=== PATIENT | female | born 1980 | race Caucasian/White ===

== ENCOUNTER 2016-11-22 14:18 | Emergency (ER) | payer BC ==
[2016-11-22 14:23] VITALS: BP 133/89; BMI 38.9
--- NOTE | 2016-11-22 15:04 | DR.GENAD ---
HPI - PCP Primary Care Physician: LISET - HPI Comment HPI Comment: S/P GASTRIC SLEAVE SURGERY. NO DIARRHEA. NO FEVER OR DYSURIA. - Complaint/Symptoms Chief Complaint Doctors Comments: ABDOMINAL PAIN SINCE LAST NIGHT WITH NAUSEA AND VOMITING. Chief Complaint:: PT C/O SEVERE ABD CRAMPING WITH N/V. PT STATES IT STARTED LAST NIGHT AND HAS PROGRESSIVLY GOTTEN WORSE. - Nurses notes reviewed Nurses Notes Review: Yes - Source History Provided: Patient - Mode of Arrival Mode of Arrival: Ambulatory - Timing Onset of Chief Complaint: 11/21/16 Came on: Suddenly - Duration Duration: Constant Duration: Hours - Severity Severity: Moderate PMH - PMH Past Medical History: Yes Past Medical History: Anxiety, GERD, Hypertension Past Surgical History: Yes Surgical History: Abdominal Surgery, Appendectomy, , Cholecystectomy, Hysterectomy Past Surgical History Comment: GASTRIC SLEAVE (THIS PAST JUNE) - Family History History of Family Medical Conditions: No - Social History Does any household member use tobacco: No Alcohol Use: None Do you use any recreational Drugs:: No Lives With: Family Lives Where: Home - infectious screening In the last 2 months have you had wt loss of >10#?: NO Have you had fever, night sweats or hemotysis?: No Have you traveled outside the country in the last 6 months?: No Isolation: Standard ROS - Review of Systems Constitutional: No Symptoms Reported, Weakness, Fatigue, Loss of Appetite. negative: Chills, Diaphoresis, Fever Eyes: No Symptoms Reported. negative: Eye Pain, Discharge ENTM: No Symptoms Reported. negative: Ear Pain, Nose Discharge, Nose Congestion , Throat Pain Respiratoy: No Symptoms Reported. negative: Productive Cough, Non-Productive Cough, Short of Breath, Wheezing, Hemoptysis Cardiovascular: No Symptoms Reported. negative: Chest Pain, Edema, Palpitations Gastrointestinal/Abdominal: Abdominal Pain, Nausea, Vomiting Genitourinary: negative: Dysuria, Frequency, Hematuria Neurological: Weakness. negative: Headache, Dizziness Musculoskeletal: No Symptoms Reported Integumentary: No Symptoms Reported. negative: Change in Color, Dryness, Rash, Bruises, Juandice Hematologic/Lymphatic: No Symptoms Reported Endocrine: No Symptoms Reported All Other Systems: Reviewed and Negative PE - Vital Signs Vitals: Temperature 98.1 F Pulse Rate 85 Respiratory Rate 20 Blood Pressure [Left Arm] 109/66 Blood Pressure 133/89 O2 Sat by Pulse Oximetry 95 - General Limitations: No Limitations General Appearance: Alert - Head Head Exam: Normal Inspection - Eyes Eye exam: Normal Appearance - ENT ENT Exam: Normal External Ear Exam External Ear Exam: Normal External Inspection TM/Canal Exam: Bilateral Normal Nose Exam: Normal Nose Exam Mouth Exam: Normal Inspection Throat Exam: Normal Inspection - Neck Neck Exam: Trachea Midline. negative: Tenderness, Meningismus, Lymphadenopathy - Chest Chest Inspection: Symmetric Chest Wall Rise - Respiratory Respiratory Exam: Normal Lung Sounds Bilat Respiratory Exam: Bilateral Clear to Auscultation - Cardiovascular Cardiovascular Exam: Regular Rate, Normal Rhythm, Normal Heart Sounds - Abdominal Exam Abdominal Exam: Normal Bowel Sounds, Soft, Tenderness Abdominal Tenderness: Diffuse, Moderate - Extremities Extremities Exam: Normal Inspection - Back Back Exam: Normal Inspection - Neurologic Neurological Exam: Alert, Oriented X3, Normal Gait, Reflexes Normal. negative: CN II-XII Intact, Motor Sensory Deficit - Psychiatric Psychiatric Exam: Normal Affect, Normal Mood - Skin Skin Exam: Normal Color MDM - Additional Information Additional Information Obtained From: Family - Differential Diagnosis Differential Diagnosis: ABDOMINAL PAIN, BOWEL OBSTRUCTION, UTI, Course - Treatment Treatment: SEE ORDERS. - Consultation Consultation Comments: DISCUSS PATIENT WITH REAL ESTATE OPERATIONS MANAGER HEAD FILTER TANK TENDER HELPER FOR DR. JORDAN. PATIENT TO GO TO DR. DELUNA OFFICE IN AM. - Education/Counseling Education/Counseling: Patient, Family, Education Educated On: Diagnosis ROR - Labs Reviewed Laboratory Results Reviewed?: Yes Result Diagrams: 11/22/16 15:10 11/22/16 15:10 Laboratory: WBC 9.4 X10^3/uL (3.6-10.0) 11/22/16 15:10 RBC 4.97 X10^6/uL (3.5-5.4) 11/22/16 15:10 Hgb 15.8 g/dL (12.0-16.0) 11/22/16 15:10 Hct 45.0 % (36.0-47.0) 11/22/16 15:10 MCV 90.5 fL (80.0-100.0) 11/22/16 15:10 MCH 31.8 pg (27.0-34.0) 11/22/16 15:10 MCHC 35.2 g/dL (33.0-35.0) H 11/22/16 15:10 RDW 13.9 % (11.6-16.5) 11/22/16 15:10 Plt Count 261 X10^3/uL (150.0-450.0) 11/22/16 15:10 MPV 8.3 fL (7.4-11.0) 11/22/16 15:10 Neut % 74.7 % (42.0-75.0) 11/22/16 15:10 Lymph % 17.3 % (21.0-51.0) L 11/22/16 15:10 [place] % 5.9 % (0.0-13.0) 11/22/16 15:10 Eos % 0.8 % (0.9-2.9) L 11/22/16 15:10 Baso % 1.3 % (0.2-1.0) H 11/22/16 15:10 Neut # 7.0 x10^3/uL (2.2-4.8) H 11/22/16 15:10 Lymph # 1.6 X10^3/uL (1.3-2.9) 11/22/16 15:10 [place] # 0.6 x10^3/uL (0.3-0.8) 11/22/16 15:10 Eos # 0.1 x10^3/uL (0.0-0.2) 11/22/16 15:10 Baso # 0.1 X10^3/uL (0.0-0.1) 11/22/16 15:10 Absolute Nucleated RBC 0.1 /100WBC 11/22/16 15:10 Sodium 143 mmol/L (136-145) 11/22/16 15:10 Corrected Sodium 144 mmol/L (136-145) 11/22/16 15:10 Potassium 3.5 mmol/L (3.5-5.1) 11/22/16 15:10 Chloride 101 mmol/L (98-107) 11/22/16 15:10 Carbon Dioxide 34.5 mmol/L (21-32) H 11/22/16 15:10 BUN 9 mg/dL (7-18) 11/22/16 15:10 Creatinine 0.76 mg/dL (0.55-1.02) 11/22/16 15:10 Est GFR (MDRD) Af Amer > 60 (>60) 11/22/16 15:10 Est GFR (MDRD) Non-Af > 60 (>60) 11/22/16 15:10 Glucose 121 mg/dL (65-99) H 11/22/16 15:10 Calcium 8.9 mg/dL (8.5-10.1) 11/22/16 15:10 Corrected Calcium TNP 11/22/16 15:10 Total Bilirubin 0.80 mg/dL (0.2-1.0) 11/22/16 15:10 AST 20 Units/L (15-37) 11/22/16 15:10 ALT 26 Units/L (12-78) 11/22/16 15:10 Alkaline Phosphatase 64 Units/L (46-116) 11/22/16 15:10 Total Protein 7.6 g/dL (6.4-8.2) 11/22/16 15:10 Albumin 3.5 g/dL (3.4-5.0) 11/22/16 15:10 Globulin 4.1 g/dL (2.5-4.5) 11/22/16 15:10 Albumin/Globulin Ratio 0.9 Ratio (1.1-2.1) L 11/22/16 15:10 Amylase 43 Units/L (25-115) 11/22/16 15:10 Lipase 101 Units/L (73-393) 11/22/16 15:10 Specimen Type Clean catch urine 11/22/16 15:36 Urine Color Dark yellow (YELLOW) 11/22/16 15:36 Urine Appearance Clear (CLEAR) 11/22/16 15:36 Urine pH 6.0 (5.0 - 8.0) 11/22/16 15:36 Ur Specific [place] 1.025 (1.000-1.030) 11/22/16 15:36 Urine Protein 2+ (NEGATIVE) 11/22/16 15:36 Urine Glucose (UA) Negative (NEGATIVE) 11/22/16 15:36 Urine Ketones 3+ (NEGATIVE) 11/22/16 15:36 Urine Occult Blood Negative (NEGATIVE) 11/22/16 15:36 Urine Nitrite Negative (NEGATIVE) 11/22/16 15:36 Urine Bilirubin Negative (NEGATIVE) 11/22/16 15:36 Urine Urobilinogen 1+ (NORMAL) 11/22/16 15:36 Ur Leukocyte Esterase 1+ (NEGATIVE) 11/22/16 15:36 Urine RBC None seen /HPF (NEGATIVE) 11/22/16 15:36 Urine WBC 1-3 /HPF (NEGATIVE) 11/22/16 15:36 Ur Squamous Epith Cells Few /HPF (NEGATIVE) 11/22/16 15:36 Amorphous Sediment 1+ /HPF (NEGATIVE) 11/22/16 15:36 Urine Bacteria 1+ /HPF (NEGATIVE) 11/22/16 15:36 Urine Mucus Moderate /HPF (NEGATIVE) 11/22/16 15:36 Ur Culture Indicated? No/not indicated 11/22/16 15:36 - XRAY XRAY Interpreted by: Radiologist XRAY Findings: REPORT DISCUSS WITH PATIENT AND FAMILY. - Diagnosis Discharge Problem: Ovarian cyst Abdominal pain Qualifiers: Abdominal location: generalized Qualified Code(s): R10.84 - Generalized abdominal pain - Discharge Plan Disposition: HOME, SELF-CARE Condition: Stable Prescriptions: Hydrocodone-Acet 5 mg/325 mg [[place] 5/325 mg Tab] 1 tab PO Q6H PRN #12 tab PRN Reason: Pain Ondansetron HCl [Zofran Tab 4 mg] 4 mg PO Q8H PRN #12 tab PRN Reason: Nausea/Vomiting - Follow ups/Referrals Follow ups/Referrals: Rigo Wise [Primary Care Provider] - 1 day - Instructions Instructions: Abdominal Pain, Adult, [id number], Ovarian Cyst, [id number] Additional Instructions: SEE DR. JORDAN, YOUR REAL ESTATE OPERATIONS MANAGER IN AM.RETURN TO ED IF WORSE.
[2016-11-22 15:24] LABS: BASOPHILS # (AUTO) 0.1 X10^3/uL (0.0-0.1); BASOPHILS % (AUTO) 1.3 % (0.2-1.0); EOSINOPHILS # (AUTO) 0.1 x10^3/uL (0.0-0.2); EOSINOPHILS % (AUTO) 0.8 % (0.9-2.9); HEMOGLOBIN 15.8 g/dL (12.0-16.0); LYMPHOCYTES # (AUTO) 1.6 X10^3/uL (1.3-2.9); LYMPHOCYTES % (AUTO) 17.3 % (21.0-51.0); MEAN CORPUSCULAR HEMOGLOBIN 31.8 pg (27.0-34.0); MEAN CORPUSCULAR HGB CONC 35.2 g/dL (33.0-35.0); MEAN CORPUSCULAR VOLUME 90.5 fL (80.0-100.0); MEAN PLATELET VOLUME 8.3 fL (7.4-11.0); MONOCYTES # (AUTO) 0.6 x10^3/uL (0.3-0.8); MONOCYTES % (AUTO) 5.9 % (0.0-13.0); NEUTROPHILS % (AUTO) 74.7 % (42.0-75.0); PLATELET COUNT 261 X10^3/uL (150.0-450.0); RED BLOOD COUNT 4.97 X10^6/uL (3.5-5.4); RED CELL DISTRIBUTION WIDTH 13.9 % (11.6-16.5); WHITE BLOOD COUNT 9.4 X10^3/uL (3.6-10.0)
[2016-11-22] MEDS ORDERED: MORPHINE SULFATE INJ 4 MG IM ONE (15:28)
[2016-11-22] MEDS ORDERED: ZOFRAN INJ 4 MG VIAL IM ONE (15:28)
[2016-11-22 15:37] LABS: ALANINE AMINOTRANSFERASE 26 Units/L (12-78); ALBUMIN 3.5 g/dL (3.4-5.0); ALKALINE PHOSPHATASE 64 Units/L (46-116); AMYLASE 43 Units/L (25-115); ASPARTATE AMINO TRANSFERASE 20 Units/L (15-37); BLOOD UREA NITROGEN 9 mg/dL (7-18); CALCIUM 8.9 mg/dL (8.5-10.1); CARBON DIOXIDE 34.5 mmol/L (21-32); CHLORIDE 101 mmol/L (98-107); COR NA(FOR HYPERGLY) 144 mmol/L (136-145); CREATININE 0.76 mg/dL (0.55-1.02); GLUCOSE 121 mg/dL (65-99); LIPASE 101 Units/L (73-393); SODIUM 143 mmol/L (136-145); TOTAL PROTEIN 7.6 g/dL (6.4-8.2); eGFR BLACK RACES > 60 (>60); eGFR NON BLACK RACES > 60 (>60)
[2016-11-22] MEDS ORDERED: MORPHINE SULFATE INJ 4 MG ONE (15:46)
[2016-11-22] MEDS ORDERED: ZOFRAN INJ 4 MG VIAL ONE (15:46)
[2016-11-22 15:53] LABS: BILIRUBIN,URINE NEGATIVE (NEGATIVE); BLOOD/HEMOGLOBIN,URINE NEGATIVE (NEGATIVE); GLUCOSE, URINE NEGATIVE (NEGATIVE); KETONES,URINE 3+ (NEGATIVE); LEUKOCYTE ESTERASE ,URINE 1+ (NEGATIVE); NITRITES,URINE NEGATIVE (NEGATIVE); PROTEIN,URINE 2+ (NEGATIVE); UROBILINOGEN,URINE 1+ (NORMAL)
[2016-11-22 16:03] LABS: AMORPHOUS SEDIMENT,UR 1+ /HPF (NEGATIVE); APPEARANCE,URINE CLEAR (CLEAR); BACTERIA,URINE 1+ /HPF (NEGATIVE); COLOR,URINE DARK YELLOW (YELLOW); MUCUS,URINE MODERATE /HPF (NEGATIVE); RBC,URINE NONE SEEN /HPF (NEGATIVE); SQUAMOUS EPITHELIAL CELL,UR FEW /HPF (NEGATIVE)
[2016-11-22] MEDS ORDERED: NS 100 ML IV 100 ML IV ONE (18:37)
--- NOTE | 2016-11-22 20:03 | CT ---
CT abdomen and pelvis with contrast Indication: Severe abdominal pain Comparison: None Technique: CT images of the abdomen and pelvis were obtained after IV and oral contrast administrati on. Automatic exposure control was utilized. Findings: The lung bases are essentially clear. No aggressive osseous lesion is seen. The gallbladde r is surgically absent. There is some geographic hypoattenuation seen centrally within the liver and adjacent to the fissure for ligamentum teres. There is trace perihepatic ascites anteriorly and sup eriorly. The liver is normal in size and configuration. Previous sleeve gastrectomy is noted, but the stomach is otherwise grossly unremarkable. The spleen, duodenum, pancreas, and adrenals are unremarkable. Hyper attenuating material within the collecting systems is more suggestive for excreted contrast, as opposed renal stones. There is no hydronephros is. There is moderate distention of a loop of jejunum within the right upper quadrant with associated mu cosal hyperemia, mesenteric stranding, and trace mesenteric fluid. The immediately distal jejunum de monstrates some hyperemia, but is not significantly distended. The appendix is surgically absent. Th e colon is otherwise unremarkable. The uterus is absent. There is a low-density 3.8 cm right adnexal lesion, suggestive for an ovarian cyst. Urinary bladder and rectum are unremarkable. Small amount o f pelvic free fluid is likely physiologic. No adenopathy identified. Impression: 1. Distended loop of distal jejunum within the right upper quadrant demonstrates mucosal hyperemia a nd adjacent mesenteric stranding. Differential considerations include enteritis (inflammatory versus infectious) or partial small bowel obstruction. 2. Geographic area of hypoattenuation within the central portion of the liver could represent focal fatty infiltration or possibly intrahepatic biliary dilation. This could be further evaluated with u ltrasound, if indicated. 3. There is trace perihepatic ascites, nonspecific. Correlate with liver function tests. 4. 3.8 cm right ovarian cyst and other findings as above. Reported By:
== END 2016-11-22 21:20 | disposition home or self-care (01) ==
LOC: ER 14:28
DX: N83.201 Unspecified ovarian cyst, right side (principal); R10.84 Generalized abdominal pain
CPT/HCPCS: 36415; 74177; 80053; 81001; 82150; 83690; 85025; 96365; 96374; 96375; 99283; A4222; J2270; J2405

== ENCOUNTER 2020-06-15 09:34 | Inpatient (IN) ==
[2020-06-15 09:42] VITALS: BMI 41.5
--- NOTE | 2020-06-15 10:05 | DR.GENAD ---
HPI Time Seen Time Seen by Provider: 06/15/20 09:56 PCP Primary Care Physician: LISET Complaint/Symptoms Chief Complaint Doctors Comments: as per CC [plus marked LOVE no orthopnea no pedal edema no hemoptysis sx increase with activity decrease with rest Chief Complaint:: PT. TESTED POSITIVE FOR COVID 19 YESTERDAY AND WAS STARTED ON A ZPAK. PT. C/O FATIGUE, FEVER, HEADACHE, BODY ACHES, COUGH, SHORTNESS OF BREATH. COVID-19 Coronavirus risk:travel/contact w/high risk person: Yes Has patient experienced Coronavirus symptoms: Yes Coronavirus symptoms experienced: Fever, Coughing and Shortness of Breath Source History Provided: Patient Mode of Arrival Mode of Arrival: Ambulatory Timing Onset of Chief Complaint: 06/12/20 PMH PMH Past Medical History: Yes Past Medical History: Anxiety, GERD and Hypertension Past Surgical History: Yes Surgical History: Abdominal Surgery, Appendectomy, , Cholecystectomy and Hysterectomy Family History History of Family Medical Conditions: Yes Family Medical History: Diabetes Mellitus, Cancer and Hypertension Social History Does patient currently use any type of tobacco product: No Have you used tobacco products in the last 12 months: No Type of Tobacco Use: None Does any household member use tobacco: No Alcohol Use: Occasionally Do you use any recreational Drugs:: No Lives With: Spouse Lives Where: Home Travel Risk Coronavirus risk:travel/contact w/high risk person: Yes Has patient experienced Coronavirus symptoms: Yes Coronavirus symptoms experienced: Fever, Coughing and Shortness of Breath Infectious screening In the last 2 months have you had wt loss of >10#?: NO Have you had fever, night sweats or hemotysis?: No Have you traveled outside the country in the last 6 months?: No Isolation: Droplet ROS Review of Systems Constitutional: Chills, Diaphoresis, Fever, Malaise, Weakness, Fatigue and Loss of Appetite Eyes: No Symptoms Reported ENTM: No Symptoms Reported Respiratoy: See HPI Cardiovascular: No Symptoms Reported Gastrointestinal/Abdominal: No Symptoms Reported Genitourinary: No Symptoms Reported Neurological: No Symptoms Reported Musculoskeletal: Muscle Pain Integumentary: No Symptoms Reported Hematologic/Lymphatic: No Symptoms Reported Endocrine: No Symptoms Reported Psychiatric: No Symptoms Reported All Other Systems: Reviewed and Negative PE Vital Signs Vitals: Temperature 99.0 F Pulse Rate 85 Respiratory Rate 23 Blood Pressure [Left Arm] 121/84 Blood Pressure 136/83 O2 Sat by Pulse Oximetry 96 General Limitations: No Limitations General Appearance: Alert, In No Apparent Distress and Other (is obviosuly tired and exhausted ) Head Head Exam: Normal Inspection Eyes Eye exam: Normal Appearance, PERRL and EOMI; negative Scleral Icterus and Conjunctival Injection ENT ENT Exam: Normal Exam, Normal Oropharynx, Normal External Ear Exam and Mucous Membranes Moist; negative Mucous Membranes Dry External Ear Exam: Normal External Inspection; negative Mastoid Tenderness Nose Exam: Normal Nose Exam; negative Sinus Tenderness Mouth Exam: Normal Inspection; negative Drooling, Trismus, Lip Swelling, Tongue Elevation and Tongue Swelling Throat Exam: Normal Inspection; negative Tonsillar Erythema, Tonsillomegaly, Tonsillar Exudate, R Peritonsillar Mass and L Peritonsillar Mass Neck Neck Exam: Normal Inspection, Full ROM and Trachea Midline Chest Chest Inspection: Normal Inspection and Symmetric Chest Wall Rise; negative Tenderness Respiratory Respiratory Exam: Normal Lung Sounds Bilat; negative Accessory Muscle Use and Chest Wall Tenderness Respiratory Exam: Bilateral: Clear to Auscultation Cardiovascular Cardiovascular Exam: Regular Rate, Normal Rhythm and Normal Heart Sounds Abdominal Exam Abdominal Exam: Normal Inspection and Normal Bowel Sounds; negative Distention and Tenderness Extremities Extremities Exam: Normal Inspection and Full ROM; negative Tenderness Back Back Exam: Normal Inspection and Full ROM; negative Tenderness Neurologic Neurological Exam: Alert, Oriented X3 and Normal Gait Psychiatric Psychiatric Exam: Normal Affect and Normal Mood Skin Skin Exam: Warm, Dry and Intact MDM Differential Diagnosis Differential Diagnosis: PNM virral, PNM bacterial , COVID, CHF, VA, Arrhytmia, Pneumothorax COURSE Reevaluation 1st: Unchanged (1029 xr suggests PNA discussed with patient see orders ) ROR Labs Reviewed Laboratory Results Reviewed?: Yes Result Diagrams: 06/15/20 09:58 06/15/20 09:58 Laboratory: WBC 5.1 X10^3/uL (3.6-10.0) 06/15/20 09:58 RBC 3.89 X10^6/uL (3.5-5.4) 06/15/20 09:58 Hgb 12.4 g/dL (12.0-16.0) 06/15/20 09:58 Hct 36.3 % (36.0-47.0) 06/15/20 09:58 MCV 93.3 fL (80.0-100.0) 06/15/20 09:58 MCH 32.0 pg (27.0-34.0) 06/15/20 09:58 MCHC 34.3 g/dL (33.0-35.0) 06/15/20 09:58 RDW 13.8 % (11.6-16.5) 06/15/20 09:58 Plt Count 216 X10^3/uL (150.0-450.0) 06/15/20 09:58 MPV 8.4 fL (7.4-11.0) 06/15/20 09:58 Neut % (Auto) 56.0 % (42.0-75.0) 06/15/20 09:58 Lymph % (Auto) 32.2 % (21.0-51.0) 06/15/20 09:58 [place] % (Auto) 7.2 % (0.0-13.0) 06/15/20 09:58 Eos % (Auto) 4.2 % (0.9-2.9) H 06/15/20 09:58 Baso % (Auto) 0.4 % (0.2-1.0) 06/15/20 09:58 Neut # (Auto) 2.9 x10^3/uL (2.2-4.8) 06/15/20 09:58 Lymph # (Auto) 1.6 X10^3/uL (1.3-2.9) 06/15/20 09:58 [place] # (Auto) 0.4 x10^3/uL (0.3-0.8) 06/15/20 09:58 Eos # (Auto) 0.2 x10^3/uL (0.0-0.2) 06/15/20 09:58 Baso # (Auto) 0.0 X10^3/uL (0.0-0.1) 06/15/20 09:58 Absolute Nucleated RBC 0.1 /100WBC 06/15/20 09:58 PT 12.7 SECONDS (11.8-14.3) 06/15/20 09:58 INR Target Range - 06/15/20 09:58 INR 0.98 (0.8-1.3) 06/15/20 09:58 APTT 29.8 SECONDS (22.9-36.5) 06/15/20 09:58 PTT Comment - 06/15/20 09:58 Sample Site Rb 06/15/20 10:42 ABG pH 7.480 (7.35-7.45) H 06/15/20 10:42 ABG pCO2 42.0 mmHg (35.0-45.0) 06/15/20 10:42 ABG pO2 63.0 mmHg (80.0-100.0) L 06/15/20 10:42 ABG HCO3 31.3 mmol/L (22-26) H* 06/15/20 10:42 ABG O2 Saturation 93.0 % (90-100) 06/15/20 10:42 ABG Base Excess 7.1 mmol/L (-2.0-2.0) H 06/15/20 10:42 [place]iel Test Na 06/15/20 10:42 A-a Gradient 34.0 mmHg 06/15/20 10:42 FiO2 21.0 06/15/20 10:42 Blood Gas Comments Dk well gmb 06/15/20 10:42 Sodium 141 mmol/L (136-145) 06/15/20 09:58 Corrected Sodium TNP 06/15/20 09:58 Potassium 3.1 mmol/L (3.5-5.1) L 06/15/20 09:58 Chloride 105 mmol/L (98-107) 06/15/20 09:58 Carbon Dioxide 29.3 mmol/L (21-32) 06/15/20 09:58 BUN 6 mg/dL (7-18) L 06/15/20 09:58 Creatinine 0.65 mg/dL (0.55-1.02) 06/15/20 09:58 Est GFR (MDRD) Af Amer > 60 (>60) 06/15/20 09:58 Est GFR (MDRD) Non-Af > 60 (>60) 06/15/20 09:58 Glucose 97 mg/dL (65-99) 06/15/20 09:58 Calcium 8.1 mg/dL (8.5-10.1) L 06/15/20 09:58 Corrected Calcium 9.1 mg/dL (8.5-10.1) 06/15/20 09:58 Ferritin 119 ng/mL (8-252) 06/15/20 09:58 Total Bilirubin 0.20 mg/dL (0.2-1.0) 06/15/20 09:58 AST 36 Units/L (15-37) 06/15/20 09:58 ALT 36 Units/L (12-78) 06/15/20 09:58 Alkaline Phosphatase 44 Units/L (46-116) L 06/15/20 09:58 Creatine Kinase 33 Units/L (26-192) 06/15/20 09:58 CK-MB (CK-2) < 1.0 ng/mL (0-4.0) 06/15/20 09:58 CK/CKMB % Calc 3.0 % (<4) 06/15/20 09:58 Troponin I < 0.02 ng/mL (0-1.5) 06/15/20 09:58 C-Reactive Protein 24.60 mg/L (0-3.0) H 06/15/20 09:58 B-Natriuretic Peptide 83.9 pg/mL (0-79) H 06/15/20 09:58 Total Protein 6.1 g/dL (6.4-8.2) L 06/15/20 09:58 Albumin 2.7 g/dL (3.4-5.0) L 06/15/20 09:58 Globulin 3.4 g/dL (2.5-4.5) 06/15/20 09:58 Albumin/Globulin Ratio 0.8 Ratio (1.1-2.1) L 06/15/20 09:58 SARS CoV-2 RNA Rapid [place] Positive (NEGATIVE) A 06/15/20 11:06 XRAY XRAY Interpreted by: Radiologist X-ray Results: suggest PNM EKG Rate: 85 Rhythm: NSR Block: None Hypertrophy: None ST: Normal Opioid Opioid Risk Tool Age (Diego box if 16-45): Yes History of Preadolescent Sexual Abuse: No Total: 1 Total Score Risk Category: Low Risk Copyright: Tariq NUNEZ predicting aberrant behaviors Diagnosis Discharge Problem: Pneumonia, Hypoxia, COVID-19
--- NOTE | 2020-06-15 10:17 | RAD ---
HISTORY:Shortness of breath, COVID-19 positiveStudy: Single view chestComparison:NoneFindings:Single portable view submitted. Lung volumes are reduced. There are hazy perihilar interstitial infiltrates, cannot exclude developing pneumonia or edema.Cardiac and mediastinal contours are within normal limits .The soft tissues are intact .IMPRESSION:Nonspecific perihilar interstitial infiltrates, cannot exclude developing pneumonia or edema.Electronically signed by: TONIE ORTIZ (Jun 15, 2020 10:15:36)
[2020-06-15 10:21] LABS: BASOPHILS % (AUTO) 0.4 % (0.2-1.0); EOSINOPHILS # (AUTO) 0.2 x10^3/uL (0.0-0.2); EOSINOPHILS % (AUTO) 4.2 % (0.9-2.9); HEMATOCRIT 36.3 % (36.0-47.0); HEMOGLOBIN 12.4 g/dL (12.0-16.0); LYMPHOCYTES # (AUTO) 1.6 X10^3/uL (1.3-2.9); LYMPHOCYTES % (AUTO) 32.2 % (21.0-51.0); MEAN CORPUSCULAR HGB CONC 34.3 g/dL (33.0-35.0); MEAN CORPUSCULAR VOLUME 93.3 fL (80.0-100.0); MEAN PLATELET VOLUME 8.4 fL (7.4-11.0); MONOCYTES # (AUTO) 0.4 x10^3/uL (0.3-0.8); MONOCYTES % (AUTO) 7.2 % (0.0-13.0); NEUTROPHILS # (AUTO) 2.9 x10^3/uL (2.2-4.8); PLATELET COUNT 216 X10^3/uL (150.0-450.0); RED BLOOD COUNT 3.89 X10^6/uL (3.5-5.4); RED CELL DISTRIBUTION WIDTH 13.8 % (11.6-16.5); WHITE BLOOD COUNT 5.1 X10^3/uL (3.6-10.0)
[2020-06-15] MEDS ORDERED: VENTOLIN or PROAIR HFA IN ONE (10:30)
[2020-06-15] MEDS ORDERED: SOLU-Medrol 125 MG VIAL IVP ONE (10:30)
[2020-06-15] MEDS ORDERED: ROCEPHIN 1 GRAM IV PREMIX 1 G/50 ML IV.SOLN. IV ONE ×2 (10:31→10:43)
[2020-06-15] MEDS ORDERED: ZITHROMAX INJ 500 MG VIAL 500 MG in NS 250 ML IV 250 ML IV SCH (10:32)
[2020-06-15 10:42] LABS: ALANINE AMINOTRANSFERASE 36 Units/L (12-78); ALBUMIN 2.7 g/dL (3.4-5.0); ALKALINE PHOSPHATASE 44 Units/L (46-116); ASPARTATE AMINO TRANSFERASE 36 Units/L (15-37); BLOOD UREA NITROGEN 6 mg/dL (7-18); CALCIUM 8.1 mg/dL (8.5-10.1); CARBON DIOXIDE 29.3 mmol/L (21-32); CHLORIDE 105 mmol/L (98-107); COR CA(FOR HYPOALB) 9.1 mg/dL (8.5-10.1); CREATINE KINASE 33 Units/L (26-192); CREATINE KINASE MB < 1.0 ng/mL (0-4.0); CREATININE 0.65 mg/dL (0.55-1.02); SODIUM 141 mmol/L (136-145); TOTAL PROTEIN 6.1 g/dL (6.4-8.2); TROPONIN I < 0.02 ng/mL (0-1.5); eGFR NON BLACK RACES > 60 (>60)
[2020-06-15] MEDS ORDERED: ZITHROMAX INJ 500 MG VIAL IV ONE (10:43)
[2020-06-15] MEDS ORDERED: SOLU-Medrol 125 MG VIAL ONE (10:43)
[2020-06-15] MEDS ORDERED: NS 250 ML IV 250 ML IV ONE ×2 (10:43→14:13)
[2020-06-15 10:47] LABS: ABG BASE EXCESS 7.1 mmol/L (-2.0-2.0)
[2020-06-15 10:48] LABS: ABG HCO3 31.3 mmol/L (22-26)
[2020-06-15] MEDS ORDERED: NS 100 ML IV 100 ML IV ONE ×2 (10:50→11:10)
[2020-06-15] MEDS ORDERED: ZOFRAN TAB 4 MG PO SCH (13:37)
[2020-06-15] MEDS ORDERED: VENTOLIN or PROAIR HFA IN PRN (13:37)
[2020-06-15] MEDS ORDERED: REMDESIVIR 200 MG in NS 250 ML IV 250 ML IV NR (13:37)
[2020-06-15] MEDS ORDERED: K-RIDER 10 MEQ/NS 100 ML 10 MEQ/100 ML BAG IV PRN (13:52)
[2020-06-15] MEDS ORDERED: POTASSIUM CHLORIDE LIQ 20 MEQ UDC PO PRN (13:52)
[2020-06-15] MEDS ORDERED: MICRO K EXTEN CAP 10 MEQ PO PRN (13:52)
[2020-06-15] MEDS ORDERED: POTASSIUM CHL 40 MEQ/NS 0.45% 500 ML IV PRN (13:52)
[2020-06-15] MEDS ORDERED: KLOR-CON PO PRN (13:52)
[2020-06-15] MEDS ORDERED: K-DUR TAB 20 MEQ PO PRN (13:52)
[2020-06-15] MEDS ORDERED: POTASSIUM CHL 60 MEQ/NS 0.45% 500 ML IV PRN (13:52)
[2020-06-15] MEDS: ZITHROMAX INJ 500 MG VIAL 500 MG in NS 250 ML IV 250 ML IV SCH (13:58)
[2020-06-15] MEDS: SOLU-Medrol 125 MG VIAL IVP SCH ×2 (13:59→21:00)
[2020-06-15] MEDS ORDERED: ZOFRAN TAB 4 MG PO PRN (14:00)
[2020-06-15] MEDS: REQUIP PO SCH ×2 (14:19→21:00)
[2020-06-15] MEDS: MAGNESIUM SULFATE 1 GRAM/100 mL PREMIX 1 GM/100 ML BAG IV PRN ×2 (17:28→20:30)
[2020-06-15] MEDS ORDERED: LOVENOX INJ 30 MG SYR SC ONE (19:39)
[2020-06-15] MEDS ORDERED: DUONEB 0.5 MG/3 MG (3 mL) NEB ONE (20:22)
[2020-06-15] MEDS: K-DUR TAB 20 MEQ PO SCH (20:30)
[2020-06-15] MEDS: LOVENOX INJ 30 MG SYR SC SCH (21:19)
[2020-06-15] MEDS: DUONEB 0.5 MG/3 MG (3 mL) NEB SCH (21:42)
[2020-06-15] MEDS: PULMICORT NEB TX 0.5 MG NEB SCH (21:42)
[2020-06-16] MEDS ORDERED: NS 100 ML IV 100 ML IV ONE (04:49)
[2020-06-16 05:44] LABS: ABG BASE EXCESS -0.9 mmol/L (-2.0-2.0); ABG HCO3 23.5 mmol/L (22-26)
[2020-06-16 05:45] LABS: ABG ALLEN TEST POS
[2020-06-16] MEDS: REQUIP PO SCH ×3 (06:00→22:00)
[2020-06-16] MEDS: SOLU-Medrol 125 MG VIAL IVP SCH ×3 (06:00→22:00)
[2020-06-16] MEDS: DUONEB 0.5 MG/3 MG (3 mL) NEB SCH ×3 (06:06→21:10)
--- NOTE | 2020-06-16 06:19 | CT ---
HISTORYSOB, COVID+STUDYCTA CHESTCOMPARISONChest radiograph from same dayTECHNIQUECTA chest protocol with axial images from the thoracic inlet to upper abdomen with IV contrast. Sagittal and coronal reformats and MIP images were created. Automated exposure control was utilized.FINDINGSThyroid gland appears benign. The thoracic aorta is normal in caliber and patent. The pulmonary artery is normal in caliber centrally. No filling defect identified to suggest pulmonary embolus. The heart is normal in size. No pericardial effusion. Small hiatal hernia. Postsurgical change the stomach status post gastric sleeve procedure. Hepatic steatosis. Hyperdensity in the left upper pole kidney likely 1.1 cm nephrolithiasis. No acute osseous abnormality.The trachea and mainstem bronchi appear patent. Scattered patchy ground-glass opacities are present in the lungs mainly with peripheral lung predominance. Mild bibasilar subsegmental atelectasis. Small pleural effusions are present. No pneumothorax.IMPRESSIONScattered patchy ground-glass opacities likely due to COVID-19. Small pleural effusions. Negative for pulmonary embolism.Hepatic steatosis. Left nephrolithiasis suspected.Electronically signed by: Jarrell Bravo (Jun 16, 2020 06:17:41)
--- NOTE | 2020-06-16 06:39 | RAD ---
HISTORYSOB, COVID+STUDYCHEST, 1 VIEWCOMPARISONOne day priorTECHNIQUEAP view of the chestFINDINGSCardiac and mediastinal contours appear stable. Stable mild scattered interstitial opacities. Blunted costophrenic sulci. No pneumothorax.IMPRESSIONSimilar appearance to prior with atypical pneumonia and suspected small pleural effusions.Electronically signed by: Jarrell Bravo (Jun 16, 2020 06:37:46)
[2020-06-16 07:27] LABS: BASOPHILS % (AUTO) 0.1 % (0.2-1.0); HEMATOCRIT 40.1 % (36.0-47.0); HEMOGLOBIN 13.6 g/dL (12.0-16.0); LYMPHOCYTES % (AUTO) 22.6 % (21.0-51.0); MEAN CORPUSCULAR HEMOGLOBIN 31.9 pg (27.0-34.0); MEAN PLATELET VOLUME 8.6 fL (7.4-11.0); MONOCYTES # (AUTO) 0.2 x10^3/uL (0.3-0.8); MONOCYTES % (AUTO) 5.2 % (0.0-13.0); NEUTROPHILS # (AUTO) 3.3 x10^3/uL (2.2-4.8); NEUTROPHILS % (AUTO) 72.1 % (42.0-75.0); PLATELET COUNT 229 X10^3/uL (150.0-450.0); RED BLOOD COUNT 4.26 X10^6/uL (3.5-5.4); RED CELL DISTRIBUTION WIDTH 13.8 % (11.6-16.5); WHITE BLOOD COUNT 4.6 X10^3/uL (3.6-10.0)
[2020-06-16] MEDS ORDERED: K-DUR TAB 20 MEQ PO ONE (07:29)
[2020-06-16] MEDS ORDERED: REMDESIVIR IV ONE (07:30)
[2020-06-16] MEDS ORDERED: CELEXA ONE (07:30)
[2020-06-16] MEDS ORDERED: HYDROCHLOROTHIAZIDE 25 MG TAB ONE (07:30)
[2020-06-16] MEDS ORDERED: TOPROL XL PO ONE (07:30)
[2020-06-16] MEDS ORDERED: NS 250 ML IV 250 ML IV ONE (07:32)
[2020-06-16] MEDS ORDERED: LOVENOX INJ 30 MG SYR SC ONE (07:32)
[2020-06-16 07:41] LABS: ALANINE AMINOTRANSFERASE 39 Units/L (12-78); ALBUMIN 3.1 g/dL (3.4-5.0); ALKALINE PHOSPHATASE 51 Units/L (46-116); ASPARTATE AMINO TRANSFERASE 29 Units/L (15-37); BLOOD UREA NITROGEN 7 mg/dL (7-18); CALCIUM 8.7 mg/dL (8.5-10.1); CHLORIDE 101 mmol/L (98-107); COR CA(FOR HYPOALB) 9.4 mg/dL (8.5-10.1); COR NA(FOR HYPERGLY) 141 mmol/L (136-145); CREATININE 0.82 mg/dL (0.55-1.02); SODIUM 139 mmol/L (136-145); TOTAL PROTEIN 7.2 g/dL (6.4-8.2); eGFR NON BLACK RACES > 60 (>60)
[2020-06-16 07:44] LABS: CARBON DIOXIDE 23.2 mmol/L (21-32)
[2020-06-16] MEDS ORDERED: NS 500 ML IV 500 ML IV ONE (09:21)
[2020-06-16] MEDS: PULMICORT NEB TX 0.5 MG NEB SCH ×2 (09:40→21:10)
[2020-06-16] MEDS: CELEXA PO SCH (09:53)
[2020-06-16] MEDS: TOPROL XL PO SCH (09:54)
[2020-06-16] MEDS: REMDESIVIR 100 MG in NS 250 ML IV 250 ML IV SCH (09:54)
[2020-06-16] MEDS: ZITHROMAX INJ 500 MG VIAL 500 MG in NS 250 ML IV 250 ML IV SCH (09:54)
[2020-06-16] MEDS: K-DUR TAB 20 MEQ PO SCH ×2 (09:55→22:00)
[2020-06-16] MEDS: HYDROCHLOROTHIAZIDE 25 MG TAB PO SCH (09:55)
[2020-06-16] MEDS: LOVENOX INJ 30 MG SYR SC SCH ×2 (09:55→22:00)
--- NOTE | 2020-06-16 18:45 | DR.H&P ---
H&P - History & Physical for Day of: H&P Date: 06/15/20 - Chief Complaint Chief Complaint: COUGH, SOB, FEVER, HEADACHE, BODY ACHES, WEAKNESS, COVID POSITIVE - History of Present Illness History of Present Illness: IS A 39 YEAR OLD WHITE FEMALE WHO PRESENTED TO THE ER WITH COMPLAINTS OF FEVER, COUGH, SHORTNESS OF BREATH, FATIGUE, HEADACHE, BODY ACHES, AND WEAKNESS. SHE TESTED POSITIVE FOR COVID-19 ON 06/14/20. SHE WAS STARTED ON A ZPAK AT THAT TIME. SHE REPORTS WORSENING OF SYMPTOMS DESPITE COMPLIANCE WITH MEDICATIONS. AUSCULTATION OF LUNG REGAN REVEALED SCATTERED WHEEZING. HER PMH INCLUDES ANXIETY, GERD, HTN, APPENDECTOMY, , CHOLECYSTECTOMY, AND HYSTERECTOMY. ON ARRIVAL TO THE ER, HER VITALS WERE 99.0-98-24-94%-121/83. LABS WERE OBTAINED. ABNORMAL LAB VALUES INCLUDE THE FOLLOWING: D-DIMER 0.74, POTASSIUM 3.1, BUN 6, CALCIUM 8.1, ALK PHOS 44, CRP 24.60, BNP 83.9, TOTAL PROTEIN 6.1, ALBUMIN 2.7. COVID-19 POSITIVE. INFLUENZA NEGATIVE. ABG REVEALED: PH 7.480, PC02 42.0, P02 63, HC03 31.3, 02 SAT 93, FI02 21.0. A CHEST XRAY WAS OBTAINED AND REVEALED: Nonspecific perihilar interstitial infiltrates, cannot exclude developing pneumonia or edema. EKG REVEALED: SINUS RHYTH WITH HR 85. WHILE IN THE ER, HER OXYGEN SATURATIONS DROPPED TO 87%-91% ON ROOM AIR. SHE WAS PLACED ON 02 VIA NASAL CANNULA AT 3LPM. SATS INCREASED TO 93- 94%. SHE WAS GIVEN SOLU-MEDROL 125MG IV X 1, ROCEPHIN 1G IV X 1, ZITHROMAX 500MG IV X 1, A 100ML NORMAL SALINE BOLUS, AND WAS GIVEN A 200MG DOSE OF REMDESIVIR IV. SHE WAS ADMITTED FOR FURTHER EVALUATION AND TREATMENT OF PNEUMONIA DUE TO COVID-19 AND HYPOXIA. SHE WAS STARTED ON REMEDSIVIR 100MG IV DAILY, SOLU-MEDROL 82MG IV Q8H, LOVENOX 30MG SC BID, PULMICORT NEBS BID, DUONEBS TID, AZITHROMYCIN 500MG IV DAILY, THE POTASSIUM AND MAGNESIUM PROTOCOLS, AND HER HOME MEDICATIONS WERE RESUMED. OTHERWISE, WE PLAN TO FOLLOW UP WITH AM LABS, CHEST XRAY, ABG, AND CONTINUE TO MONITOR. - Past Medical History Past Medical History: Hypertension, Anxiety, GERD Additional Medical History: Hiatal Hernia, Restless Leg Syndrome, History of Gestational Diabetes - Past Surgical History Surgical History: Abdominal Surgery, Appendectomy, Cholecystectomy, , Hysterectomy Additional Surgical History: Bladder Tact, Lap Band, Tummy Tuck, Breast Reduction - Family History Family Medical History: Diabetes Mellitus, Cancer, Hypertension - Social History Does patient currently use any type of tobacco product: No Have you used tobacco products in the last 12 months: No Type of Tobacco Use: None Does any household member use tobacco: No Alcohol Use: None Drug Use: None - Medications Home Medications: codeine Allergy (Verified 06/15/20 09:42) levofloxacin [From Levaquin] Allergy (Verified 06/15/20 09:42) Penicillins Allergy (Verified 06/15/20 09:42) CONTINUE taking the following medications azithromycin 250 mg PO DAILY 06/15/20 [History] ropinirole 1 mg PO HS 06/15/20 [History] - Review of Systems Constitutional: See HPI, Fever, Chills, Weakness Eyes: No Symptoms Reported ENT: No Symptoms Reported Respiratory: See HPI, Cough, Shortness of Breath, SOB with Excertion, Wheezing Cardiovascular: No Symptoms Reported Gastrointestinal: No Symptoms Reported Genitourinary: No Symptoms Reported Musculoskeletal: No Symptoms Reported Skin: No Symptoms Reported Neurological: Weakness - Physical Exam Vital Signs: Temperature 98.3 F Pulse Rate [Right Radial] 94 Pulse Rate 85 Respiratory Rate 20 Blood Pressure [Left Arm] 121/81 Blood Pressure 136/83 O2 Sat by Pulse Oximetry 95 Oriented: Normal Eyes: Normal Ear: Normal Nose: Normal Throat: Normal Respiratory: Wheezes Throughout Cardiovascular: Normal : Normal Auscultation: Bowel Sounds: Normal Palpation: Normal Tenderness: Normal Skin: Normal Musculoskeletal: Normal Psychiatric: Normal Mood Description: Calm Affect: Normal Speech Pattern: Clear - Assessment/Plan (1) Pneumonia due to 2019 novel coronavirus Status: Acute Plan: ADMIT, REMEDSIVIR 100MG IV DAILY, SOLU-MEDROL 82MG IV Q8H, LOVENOX 30MG SC BID, PULMICORT NEBS BID, DUONEBS TID, AZITHROMYCIN 500MG IV DAILY, THE POTASSIUM AND MAGNESIUM PROTOCOLS, AND HER HOME MEDICATIONS WERE RESUMED. SUPPLEMENTAL OXYGEN, OBTAIN CHEST CTA (2) Hypoxia Status: Acute - Allergies Allergies/Adverse Reactions: Allergies Allergy/AdvReac Type Severity Reaction Status Date / Time codeine Allergy Verified 06/15/20 09:42 levofloxacin [From Levaquin] Allergy Verified 06/15/20 09:42 Penicillins Allergy Verified 06/15/20 09:42
[2020-06-16] MEDS ORDERED: REMDESIVIR 100 MG in NS 250 ML IV 250 ML IV ONE (21:00)
[2020-06-17] MEDS: DUONEB 0.5 MG/3 MG (3 mL) NEB SCH (05:10)
[2020-06-17 05:14] LABS: ABG HCO3 26.5 mmol/L (22-26); FRACTIONATED INSPIRED OXYGEN 28
[2020-06-17 05:15] LABS: ABG ALLEN TEST POS
[2020-06-17 05:29] LABS: BASOPHILS % (AUTO) 0.1 % (0.2-1.0); HEMATOCRIT 40.1 % (36.0-47.0); HEMOGLOBIN 13.5 g/dL (12.0-16.0); LYMPHOCYTES # (AUTO) 0.9 X10^3/uL (1.3-2.9); MEAN CORPUSCULAR HEMOGLOBIN 31.9 pg (27.0-34.0); MEAN CORPUSCULAR HGB CONC 33.7 g/dL (33.0-35.0); MEAN CORPUSCULAR VOLUME 94.6 fL (80.0-100.0); MEAN PLATELET VOLUME 8.7 fL (7.4-11.0); MONOCYTES # (AUTO) 0.3 x10^3/uL (0.3-0.8); MONOCYTES % (AUTO) 3.6 % (0.0-13.0); NEUTROPHILS # (AUTO) 8.3 x10^3/uL (2.2-4.8); NEUTROPHILS % (AUTO) 87.3 % (42.0-75.0); PLATELET COUNT 282 X10^3/uL (150.0-450.0); RED BLOOD COUNT 4.24 X10^6/uL (3.5-5.4); WHITE BLOOD COUNT 9.6 X10^3/uL (3.6-10.0)
[2020-06-17 05:36] LABS: ALANINE AMINOTRANSFERASE 33 Units/L (12-78); ALKALINE PHOSPHATASE 49 Units/L (46-116); ASPARTATE AMINO TRANSFERASE 25 Units/L (15-37); BLOOD UREA NITROGEN 10 mg/dL (7-18); CALCIUM 8.8 mg/dL (8.5-10.1); CARBON DIOXIDE 26.5 mmol/L (21-32); CHLORIDE 103 mmol/L (98-107); COR CA(FOR HYPOALB) 9.6 mg/dL (8.5-10.1); COR NA(FOR HYPERGLY) 142 mmol/L (136-145); CREATININE 0.77 mg/dL (0.55-1.02); SODIUM 140 mmol/L (136-145); eGFR NON BLACK RACES > 60 (>60)
[2020-06-17] MEDS: REQUIP PO SCH (05:37)
[2020-06-17] MEDS: SOLU-Medrol 125 MG VIAL IVP SCH (05:38)
--- NOTE | 2020-06-17 08:08 | RAD ---
HISTORYCOVID, SOBSTUDYCHEST, 1 [id number]/16/2020FINDINGSThe trachea is midline. The cardiac silhouette is stable. Hypoventilatory exam with similar faint bilateral airspace opacities. The bony thorax is unremarkable.IMPRESSIONSimilar faint bilateral airspace opacities consistent with history of COVID-19.Electronically signed by: JINNY DELGADO (Jun 17, 2020 08:06:54)
[2020-06-17] MEDS: CELEXA PO SCH (09:24)
[2020-06-17] MEDS: K-DUR TAB 20 MEQ PO SCH (09:25)
[2020-06-17] MEDS: LOVENOX INJ 30 MG SYR SC SCH (09:26)
[2020-06-17] MEDS: HYDROCHLOROTHIAZIDE 25 MG TAB PO SCH (09:26)
[2020-06-17] MEDS: TOPROL XL PO SCH (09:27)
[2020-06-17] MEDS: REMDESIVIR 100 MG in NS 250 ML IV 250 ML IV SCH (09:27)
[2020-06-17] MEDS ORDERED: NS 500 ML IV 500 ML IV ONE (09:31)
[2020-06-17] MEDS: PULMICORT NEB TX 0.5 MG NEB SCH (09:45)
[2020-06-17 10:51] VITALS: BP 126/90
[2020-06-17] MEDS ORDERED: NS 250 ML IV 0 ML IV ONE (11:16)
[2020-06-17] MEDS ORDERED: NS 250 ML IV 250 ML IV ONE (11:17)
[2020-06-17] MEDS ORDERED: REMDESIVIR 100 MG in NS 250 ML IV 250 ML IV ONE (12:00)
[2020-06-17] MEDS: ZITHROMAX INJ 500 MG VIAL 500 MG in NS 250 ML IV 250 ML IV SCH ×2 (12:00→12:53)
== END 2020-06-17 13:40 | disposition home or self-care (01) | DRG 177 ==
LOC: ER 09:39 → MED/SURG 13:09
PROVIDERS: ADMIT Internal Medicine; ATTEND Internal Medicine
DX: J12.89 Other viral pneumonia; R79.82 Elevated C-reactive protein (CRP); R79.89 Other specified abnormal findings of blood chemistry; U07.1 COVID-19; R53.1 Weakness; R51.9 Headache, unspecified; R06.02 Shortness of breath

== ENCOUNTER 2023-02-12 14:34 | Inpatient (IN) ==
[2023-02-12] MEDS ORDERED: CONSULT PHARMACY - POTASSIUM & MAGNESIUM XX SCH (16:00)
[2023-02-12 16:34] LABS: BASOPHILS # (AUTO) 0.1 X10^3/uL (0.0-0.1); BASOPHILS % (AUTO) 0.5 % (0.2-1.0); EOSINOPHILS % (AUTO) 0.1 % (0.9-2.9); HEMATOCRIT 34.4 % (36.0-47.0); LYMPHOCYTES # (AUTO) 3.5 X10^3/uL (1.3-2.9); LYMPHOCYTES % (AUTO) 36.1 % (21.0-51.0); MEAN CORPUSCULAR HEMOGLOBIN 29.5 pg (27.0-34.0); MEAN CORPUSCULAR HGB CONC 34.9 g/dL (33.0-35.0); MEAN CORPUSCULAR VOLUME 84.5 fL (80.0-100.0); MEAN PLATELET VOLUME 7.7 fL (7.4-11.0); MONOCYTES # (AUTO) 0.6 x10^3/uL (0.3-0.8); MONOCYTES % (AUTO) 6.1 % (0.0-13.0); NEUTROPHILS # (AUTO) 5.5 x10^3/uL (2.2-4.8); NEUTROPHILS % (AUTO) 57.2 % (42.0-75.0); PLATELET COUNT 361 X10^3/uL (150.0-450.0); RED BLOOD COUNT 4.07 X10^6/uL (3.5-5.4); RED CELL DISTRIBUTION WIDTH 13.6 % (11.6-16.5); WHITE BLOOD COUNT 9.6 X10^3/uL (3.6-10.0)
[2023-02-12 16:42] LABS: ALANINE AMINOTRANSFERASE 31 Units/L (12-78); ALBUMIN 2.7 g/dL (3.4-5.0); ALKALINE PHOSPHATASE 67 Units/L (46-116); AMYLASE 35 Units/L (25-115); ASPARTATE AMINO TRANSFERASE 29 Units/L (15-37); BLOOD UREA NITROGEN 5 mg/dL (7-18); CALCIUM 7.7 mg/dL (8.5-10.1); CARBON DIOXIDE 29.6 mmol/L (21-32); CHLORIDE 103 mmol/L (98-107); COR CA(FOR HYPOALB) 8.7 mg/dL (8.5-10.1); COR NA(FOR HYPERGLY) 142 mmol/L (136-145); CREATININE 0.68 mg/dL (0.55-1.02); GLUCOSE 138 mg/dL (65-99); LIPASE 90 Units/L (73-393); SODIUM 141 mmol/L (136-145); TOTAL PROTEIN 5.9 g/dL (6.4-8.2); eGFR NON BLACK RACES > 60 (>60)
[2023-02-12 16:43] LABS: POTASSIUM 2.1 mmol/L (3.5-5.1)
[2023-02-12] MEDS: NS 1,000 ML IV 1,000 ML IV SCH (16:47)
[2023-02-12] MEDS: ZOFRAN INJ 4 MG VIAL IVP PRN (16:47)
[2023-02-12] MEDS ORDERED: NS + KCL 40 MEQ/L 1,000 ML IV ONE (17:49)
[2023-02-12] MEDS: K-RIDER 10 MEQ/NS 100 ML 10 MEQ/100 ML BAG IV SCH ×2 (17:55→20:21)
[2023-02-12] MEDS ORDERED: NS + KCL 40 MEQ/L 1,000 ML IV SCH ×2 (18:00→20:00)
[2023-02-12] MEDS: MAGNESIUM SULFATE 1 GRAM/100 mL PREMIX 1 G/100 ML BAG IV SCH ×2 (19:13→21:17)
[2023-02-12 20:00] LABS: BILIRUBIN,URINE NEGATIVE (NEGATIVE); BLOOD/HEMOGLOBIN,URINE 5+ (NEGATIVE); GLUCOSE, URINE NEGATIVE (NEGATIVE); KETONES,URINE NEGATIVE (NEGATIVE); LEUKOCYTE ESTERASE ,URINE NEGATIVE (NEGATIVE); NITRITES,URINE NEGATIVE (NEGATIVE); PROTEIN,URINE 2+ (NEGATIVE); UROBILINOGEN,URINE NORMAL (NORMAL)
[2023-02-12 20:10] LABS: APPEARANCE,URINE CLEAR (CLEAR); BACTERIA,URINE NEGATIVE /HPF (NEGATIVE); COLOR,URINE YELLOW (YELLOW); RBC,URINE TNTC /HPF (0-3); SQUAMOUS EPITHELIAL CELL,UR FEW /HPF (NEGATIVE)
--- NOTE | 2023-02-13 00:57 | RAD ---
HISTORYPT C/O N/V/D AND FEVER X 3 DAYS.STUDYKUBCOMPARISONNoneTEC HNIQUEAP supine projection, 2 imagesFINDINGSGas and stool in non-distended colon.No gross free air.No abnormal calcifications.No acute osseous abnormality.IMPRESSIONNo acute intra-abdominal abnormality detected.Electronically signed by: Ronnie Akers (Feb 13, 2023 00:57:35)
[2023-02-13] MEDS: NS 1,000 ML IV 1,000 ML IV SCH ×2 (02:57→04:43)
[2023-02-13 06:29] LABS: BASOPHILS % (AUTO) 0.4 % (0.2-1.0); EOSINOPHILS % (AUTO) 0.2 % (0.9-2.9); HEMATOCRIT 32.6 % (36.0-47.0); HEMOGLOBIN 11.5 g/dL (12.0-16.0); LYMPHOCYTES % (AUTO) 38.1 % (21.0-51.0); MEAN CORPUSCULAR HEMOGLOBIN 29.6 pg (27.0-34.0); MEAN CORPUSCULAR HGB CONC 35.2 g/dL (33.0-35.0); MEAN CORPUSCULAR VOLUME 84.2 fL (80.0-100.0); MEAN PLATELET VOLUME 7.7 fL (7.4-11.0); MONOCYTES # (AUTO) 0.6 x10^3/uL (0.3-0.8); MONOCYTES % (AUTO) 7.9 % (0.0-13.0); NEUTROPHILS # (AUTO) 4.2 x10^3/uL (2.2-4.8); NEUTROPHILS % (AUTO) 53.4 % (42.0-75.0); PLATELET COUNT 325 X10^3/uL (150.0-450.0); RED BLOOD COUNT 3.87 X10^6/uL (3.5-5.4); RED CELL DISTRIBUTION WIDTH 13.8 % (11.6-16.5); WHITE BLOOD COUNT 7.9 X10^3/uL (3.6-10.0)
[2023-02-13 06:56] LABS: ALANINE AMINOTRANSFERASE 26 Units/L (12-78); ALBUMIN 2.3 g/dL (3.4-5.0); ALKALINE PHOSPHATASE 65 Units/L (46-116); ASPARTATE AMINO TRANSFERASE 24 Units/L (15-37); BLOOD UREA NITROGEN 4 mg/dL (7-18); CARBON DIOXIDE 27.2 mmol/L (21-32); CHLORIDE 105 mmol/L (98-107); COR CA(FOR HYPOALB) 8.4 mg/dL (8.5-10.1); COR NA(FOR HYPERGLY) 143 mmol/L (136-145); CREATININE 0.65 mg/dL (0.55-1.02); GLUCOSE 146 mg/dL (65-99); MAGNESIUM 1.9 mg/dL (2.0-2.9); SODIUM 142 mmol/L (136-145); TOTAL PROTEIN 5.3 g/dL (6.4-8.2); eGFR NON BLACK RACES > 60 (>60)
[2023-02-13 07:04] LABS: POTASSIUM 2.2 mmol/L (3.5-5.1)
[2023-02-13] MEDS: MAGNESIUM SULFATE 1 GRAM/100 mL PREMIX 1 G/100 ML BAG IV SCH ×2 (07:47→09:04)
[2023-02-13] MEDS ORDERED: CONSULT PHARMACY - POTASSIUM & MAGNESIUM XX SCH (08:00)
[2023-02-13 08:52] VITALS: BMI 34.3
[2023-02-13] MEDS ORDERED: ATIVAN TAB 1 MG PO PRN (08:52)
[2023-02-13] MEDS ORDERED: LOMOTIL PO PRN (08:52)
[2023-02-13] MEDS ORDERED: GLUCOPHAGE ONE ×2 (09:14→20:05)
[2023-02-13] MEDS: REQUIP PO SCH ×3 (09:26→21:13)
[2023-02-13] MEDS: LAMICTAL TAB 100 MG PO SCH ×2 (09:26→21:14)
[2023-02-13] MEDS: GLUCOPHAGE PO SCH ×2 (09:27→21:14)
[2023-02-13] MEDS: PROTONIX INJ 40 MG VIAL IVP SCH ×2 (09:28→21:14)
[2023-02-13] MEDS: DESVENLAFAXINE 100 MG PO SCH (09:33)
[2023-02-13] MEDS: PEPCID 20 MG VIAL 20 MG in NS 50 ML IV 50 ML IV SCH ×3 (10:42→21:14)
[2023-02-13] MEDS: NS + KCL 40 MEQ/L 1,000 ML IV SCH ×2 (11:16→16:12)
--- NOTE | 2023-02-13 11:35 | CT ---
HISTORYABDOMINAL PAINConcern for renal stone.Exam: Non-contrast CT examination of the abdomen & pelvis.Technique: Multiple CT images of the abdomen and pelvis were obtained from the lung bases to the pubic symphysis without the IV administration of contrast. Of note, this CT exam was optimized for renal stone disease and some parenchymal organ abnormalities and vascular abnormalities/injuries cannot be excluded on the basis of this CT exam.Findings:[The lung bases are clear]. The heart is [normal in size without a pericardial effusion]. [The liver, gallbladder, adrenal glands, and spleen are unremarkable on these non contrasted images]. [There is no pneumoperitoneum or hemoperitoneum seen]. [There is no bowel obstruction, large hernia defect, or acute mesenteric inflammatory change]. [There is no evidence for colitis, diverticulitis, or appendicitis]. [No loculated intraperitoneal fluid collection is seen]. Numerous borderline enlarged mesenteric lymph nodes are seen throughout the mid abdomen and in the lower pelvis and right lower quadrant which can be seen with mesenteric adenitis. However, since follicular lymphoma can also give this appearance in early forms, close interval follow-up with repeat abdominopelvic CT imaging with IV and oral contrast in 3 months is recommended for assurance. Postsurgical changes are seen within the stomach. There is a small distal hiatal hernia. No acute mesenteric inflammation or other acute abdominopelvic process is identified. Examination of the kidneys demonstrates no obstructing renal stones. No other renal, bladder, or abdominopelvic abnormalities are seen. No lytic bony lesions or acute fractures are seen.Impression:Numerous shotty and borderline enlarged mesenteric lymph nodes are seen throughout the mid abdomen and in the lower pelvis and right lower quadrant which can be seen with acute or subacute mesenteric adenitis. However, since early follicular lymphoma can also give this abdominal CT appearance, close interval follow-up with repeat abdominopelvic CT imaging with IV and oral contrast within 3 months is recommended for assurance. Postsurgical changes are seen within the stomach. Small distal hiatal hernia.No acute mesenteric inflammation or other acute abdominopelvic process is identified.Electronically signed by: SOFIYA BALTAZAR III (Feb 13, 2023 11:17:20)
--- NOTE | 2023-02-13 12:01 | DR.H&P ---
H&P - History & Physical for Day of: H&P Date: 02/13/23 - Chief Complaint Chief Complaint: NAUSEA, VOMITING, DIARRHEA, AND WEAKNESS - History of Present Illness History of Present Illness: IS A 42 YEAR OLD PATIENT OF OURS. SHE HAS A PMH OF HTN, RLS, DM II, APPENDECTOMY, , CHOLECYSTECTOMY, HYSTERECTOMY, GASTRIC SLEEVE, BREAST REDUCTION, AND ABDOMINOPLASTY. SHE WAS A DIRECT ADMISSION TO THE HOSPITAL DUE TO COMPLAINTS OF INTRACTABLE NAUSEA, VOMITING, DIARRHEA, AND WEAKNESS. PATIENT REPORTS THAT SHE STARTED HAVING CHILLS AND DIARRHEA ABOUT A WEEK PRIOR TO ADMISSION. SHE BEGAN RUNNING A FEVER ON 02/07 AND THEN STARTED HAVING NAUSEA AND VOMITING ON 02/08. SHE REPORTS DECREASED APETITE AND INTERMITTENT PERIUMBILICAL CRAMPING WITH NO ALLEVIATING OR EXACERBATING FACTORS. SHE WAS GIVEN A LITER OF NORMAL SALINE LAST WEEK AND AGAIN YESTERDAY. SHE HAD ALSO BEEN TAKING ZOFRAN AND LOMOTIL AT HOME WITHOUT IMPROVEMENT. ON ARRIVAL TO THE HOSPITAL, HER VITALS WERE: 97.0-101-20-98%-118/78. LABS WERE OBTAINED. WBC 9.6, RBC 4.07, HGB 12.0, HCT 34.4, PLT COUNT 361, SODIUM 141, POTASSIUM 2.1, CHLORIDE 103, BUN 5, CREATININE 0.68, GLUCOSE 138, CALCIUM 7.7, MAGNESIUM 1.4, AST 29, ALT 31, ALK PHOS 67, TOTAL PROTEIN 5.9, ALBUMIN 2.7, AMYLASE 35, LIPASE 90. URINALYSIS WAS OBTAINED AND REVEALED: WBC 0-2, RBC TNTC, BACTERIA NEGATIVE, BLOOD 5+. A URINE CULTURE WAS SET UP. A KUB WAS OBTAINED AND REVEALED: NO ACUTE INTRA-ABDOMINAL ABNORMALITY DETECTED. ON ADMISSION, SHE WAS STARTED ON NORMAL SALINE AT 40 MEQ KCL AT 125 ML/HR, PROTONIX 40MG IV BID, PEPCID 20MG IV Q12H, ZOFRAN 4MG IV Q4H PRN. WE WILL RESUME HER HOME MEDICATIONS OF LOMOTIL, LAMICTAL, ATIVAN, GLUCOPHAGE, SINGULAIR, DESVENLAFAXINE, AND REQUIP. WE WILL OBTAIN STOOL STUDIES. WE WILL ALSO CHECK AN ABDOMEN/PELVIS CT WITHOUT CONTRAST. OTHERWISE, WE WILL FOLLOW UP WITH AM LABS AND CONTINUE TO MONITOR. TIME SPENT ON CLINICAL ASSESSMENT, REVIEWING LABS AND IMAGING, DECISION MAKING, AND DOCUMENTATION GREATER THAN 75 MINUTES. - Past Medical History Past Medical History: Depression, Diabetes, Hypertension Additional Medical History: Hiatal Hernia, Restless Leg Syndrome, - Past Surgical History Surgical History: Appendectomy, , Cholecystectomy, Hysterectomy Additional Surgical History: Bladder Tact, Lap Band, Tummy Tuck, Breast Reduct ion - Family History Family Medical History: Diabetes Mellitus, Cancer, PR, Coronary Artery Disease, Hypertension - Social History Does patient currently use any type of tobacco product: No Have you used tobacco products in the last 12 months: No Type of Tobacco Use: None Alcohol Use: Occasionally Drug Use: None - Review of Systems Constitutional: Fever, Chills, Weakness Eyes: No Symptoms Reported ENT: No Symptoms Reported Respiratory: No Symptoms Reported Cardiovascular: No Symptoms Reported Gastrointestinal: Nausea, Vomiting, Abdominal Pain, Diarrhea Genitourinary: No Symptoms Reported Musculoskeletal: No Symptoms Reported Skin: No Symptoms Reported Neurological: Weakness - Physical Exam Vital Signs: Vital Signs Temperature 97.6 F Temperature 97.8 F Pulse Rate [Right Radial] 95 Pulse Rate [Right Radial] 96 Respiratory Rate 18 Respiratory Rate 20 Blood Pressure [Left Arm] 92/66 Blood Pressure [Left Arm] 114/77 O2 Sat by Pulse Oximetry 96 O2 Sat by Pulse Oximetry 99 Oriented: Normal Eyes: Normal Ear: Normal Nose: Normal Throat: Normal Respiratory: Diminished Throughout Cardiovascular: Normal : Normal Auscultation: Bowel Sounds: Normal Palpation: Normal Tenderness: Normal Skin: Decreased Turgur Musculoskeletal: Normal Psychiatric: Normal Mood Description: Calm Affect: Normal Speech Pattern: Clear - Assessment/Plan (1) Dehydration Status: Acute Plan: NORMAL SALINE AT 40 MEQ KCL AT 125 ML/HR, PROTONIX 40MG IV BID, PEPCID 20MG IV Q12H, ZOFRAN 4MG IV Q4H PRN. WE WILL RESUME HER HOME MEDICATIONS OF LOMOTIL, LAMICTAL, ATIVAN, GLUCOPHAGE, SINGULAIR, DESVENLAFAXINE, AND REQUIP (2) Abdominal pain Qualifiers: Abdominal location: generalized Qualified Code(s): R10.84 - Generalized abdominal pain Status: Acute Plan: OBTAIN ABDOMEN/PELVIS CT WITHOUT CONTRAST (3) Intractable nausea and vomiting Status: Acute (4) Diarrhea Qualifiers: Diarrhea type: unspecified type Qualified Code(s): R19.7 - Diarrhea, unspecified Status: Acute (5) Hypokalemia Status: Acute (6) Hypomagnesemia Status: Acute - Allergies Allergies/Adverse Reactions: Allergies Allergy/AdvReac Type Severity Reaction Status Date / Time codeine Allergy Verified 11/25/20 15:03 levofloxacin [From Levaquin] Allergy Verified 11/25/20 15:03 Penicillins Allergy Verified 11/25/20 15:03 - Medications Home Medications: Home Medications Medication Instructions Recorded Confirmed desvenlafaxine 100 mg 100 mg PO DAILY 02/12/23 02/12/23 tablet,extended release 24 hr diphenoxylate-atropine 2.5 1 tab PO Q8H PRN 02/12/23 02/12/23 mg-0.025 mg tablet hydrochlorothiazide 25 mg tablet 25 mg PO DAILY 02/12/23 02/12/23 lamotrigine 100 mg tablet 50 mg PO BID 02/12/23 02/12/23 lorazepam 1 mg tablet 1 mg PO DAILY PRN 02/12/23 02/12/23 metformin 500 mg tablet 500 mg PO BID 02/12/23 02/12/23 metoprolol succinate 25 mg 25 mg PO BID 02/12/23 02/12/23 tablet,extended release 24 hr montelukast 10 mg tablet 10 mg PO HS 02/12/23 02/12/23 omeprazole 20 mg capsule,delayed 20 mg PO DAILY 02/12/23 02/12/23 release ondansetron 4 mg disintegrating 4 mg PO Q8H PRN 02/12/23 02/12/23 tablet ropinirole 1 mg tablet 1 mg PO TID 02/12/23 02/12/23 tirzepatide 15 mg/0.5 mL 15 mg subcut WEEKLY 02/12/23 02/12/23 subcutaneous pen injector (Asa)
[2023-02-13 17:30] LABS: GIARDIA LAMBLIA ANTIGEN NEGATIVE (NEGATIVE)
[2023-02-13 17:31] LABS: CRYPTOSPORIDIUM PARVUM ANTIGEN POSITIVE (NEGATIVE)
[2023-02-13] MEDS: SINGULAIR TAB 10 MG PO SCH (21:13)
[2023-02-13] MEDS: FLAGYL IV PREMIX 500 MG BAG 500 MG/100 ML BAG IV SCH (21:14)
[2023-02-14] MEDS: NS + KCL 40 MEQ/L 1,000 ML IV SCH ×6 (00:32→23:35)
[2023-02-14] MEDS: FLAGYL IV PREMIX 500 MG BAG 500 MG/100 ML BAG IV SCH ×4 (02:00→21:19)
[2023-02-14 05:06] LABS: BASOPHILS % (AUTO) 0.5 % (0.2-1.0); EOSINOPHILS % (AUTO) 0.2 % (0.9-2.9); LYMPHOCYTES # (AUTO) 1.6 X10^3/uL (1.3-2.9); LYMPHOCYTES % (AUTO) 25.4 % (21.0-51.0); MEAN CORPUSCULAR HGB CONC 35.4 g/dL (33.0-35.0); MEAN CORPUSCULAR VOLUME 84.9 fL (80.0-100.0); MEAN PLATELET VOLUME 8.1 fL (7.4-11.0); MONOCYTES # (AUTO) 0.6 x10^3/uL (0.3-0.8); MONOCYTES % (AUTO) 8.9 % (0.0-13.0); NEUTROPHILS # (AUTO) 4.1 x10^3/uL (2.2-4.8); PLATELET COUNT 380 X10^3/uL (150.0-450.0); RED CELL DISTRIBUTION WIDTH 13.7 % (11.6-16.5); WHITE BLOOD COUNT 6.4 X10^3/uL (3.6-10.0)
[2023-02-14 05:21] LABS: ALANINE AMINOTRANSFERASE 26 Units/L (12-78); ALBUMIN 2.4 g/dL (3.4-5.0); ALKALINE PHOSPHATASE 69 Units/L (46-116); ASPARTATE AMINO TRANSFERASE 25 Units/L (15-37); BLOOD UREA NITROGEN 4 mg/dL (7-18); CALCIUM 6.9 mg/dL (8.5-10.1); CARBON DIOXIDE 30.4 mmol/L (21-32); CHLORIDE 106 mmol/L (98-107); COR CA(FOR HYPOALB) 8.2 mg/dL (8.5-10.1); CREATININE 0.62 mg/dL (0.55-1.02); GLUCOSE 110 mg/dL (65-99); SODIUM 143 mmol/L (136-145); TOTAL PROTEIN 5.4 g/dL (6.4-8.2); eGFR NON BLACK RACES > 60 (>60)
[2023-02-14] MEDS: REQUIP PO SCH ×3 (05:22→21:22)
[2023-02-14 05:23] LABS: POTASSIUM 2.8 mmol/L (3.5-5.1)
[2023-02-14] MEDS ORDERED: CONSULT PHARMACY - POTASSIUM & MAGNESIUM XX SCH (06:00)
[2023-02-14] MEDS ORDERED: GLUCOPHAGE ONE ×2 (07:55→20:10)
[2023-02-14] MEDS: DESVENLAFAXINE 100 MG PO SCH (08:08)
[2023-02-14] MEDS: PROTONIX INJ 40 MG VIAL IVP SCH ×2 (08:08→21:22)
[2023-02-14] MEDS: LAMICTAL TAB 100 MG PO SCH ×2 (08:08→21:20)
[2023-02-14] MEDS: PEPCID 20 MG VIAL 20 MG in NS 50 ML IV 50 ML IV SCH ×2 (08:09→21:45)
[2023-02-14] MEDS: GLUCOPHAGE PO SCH ×2 (08:16→21:20)
[2023-02-14] MEDS: MAG-OX TAB PO SCH ×2 (08:48→21:21)
[2023-02-14] MEDS ORDERED: K-RIDER 10 MEQ/NS 100 ML 10 MEQ/100 ML BAG IV SCH (09:00)
[2023-02-14] MEDS ORDERED: LOMOTIL PO PRN (13:02)
--- NOTE | 2023-02-14 13:07 | PCM.PROG ---
Progress Note - Progress Note for Day of Date of Exam: 02/14/23 - Subjective Subjective: IS CURRENTLY INPATIENT STATUS FOR TREATMENT OF DEHYDRATION, ABDOMINAL PAIN, INTRACTABLE NAUSEA AND VOMITING, INTRACTABLE DIARRHEA, AND ELECTROLYTE DEPLETION. TODAY, SHE IS ALERT AND ORIENTED, LYING IN BED ON MORNING ROUNDS. SHE CONTINUES TO COMPLAIN OF DIFFUSE ABDOMINAL PAIN, GENERALIZED WEAKNESS, DIARRHEA, AND NAUSEA THIS MORNING. SHE DENIES VOMITING THROUGHOUT THE NIGHT. SHE REPORTS THAT SHE CONTINUED TO HAVE MULTIPLE EPISODES OF DIARRHEA SINCE YESTERDAY. ON EXAMINATION, HEART IS REGULAR IN RATE AND RHYHTM. BILATERAL LUNGS ARE CLEAR TO AUSCULTATION. ABDOMEN IS ROUND, SOFT, AND NOTED WITH DIFFUSE TENDERNESS. HYPERACTIVE BOWEL SOUNDS ARE NOTED. GOOD RANGE OF MOTION NOTED TO UP PER AND LOWER EXTREMITIES WITH NO EDEMA NOTED. HER VITALS THIS MORNING ARE: 97.7-100-20-97%-114/72. LABS WERE OBTAINED. WBC 6.4, RBC 4.00, HGB 12.0, HCT 34.0, PLT COUNT 380, SODIUM 143, POTASSIUM 2.8, CHLORIDE 106, BUN 4, CREATININE 0.62, GLUCOSE 110, CALCIUM 6.9, MAGNESIUM 2.0, AST 25, ALT 26, ALK PHOS 69, TOTAL PROTEIN 5.4, ALBUMIN 2.4. A URINE CULTURE IS PENDING. STOOL STUDIES WERE POSITIVE FOR WHITE CELLS AND CRYPTOSPORIDIUM PARVUM. STOOL CULTURES ARE PENDING. AN ABDOMEN/PELVIS CT WITH CONTRAST WAS OBTAINED YESTERDAY AND REVEALED: Numerous shotty and borderline enlarged mesenteric lymph nodes are seen throughout the mid abdomen and in the lower pelvis and right lower quadrant which can be seen with acute or subacute mesenteric adenitis. However, since early follicular lymphoma can also give this abdominal CT appearance, close interval follow-up with repeat abdominopelvic CT imaging with IV and oral contrast within 3 months is recommended for assurance. Postsurgical changes are seen within the stomach. Small distal hiatal hernia. SHE IS CURRENTLY RECEIVING NORMAL SALINE WITH 40MEQ KCL AT 125 ML/HR, FLAGYL 500MG IV Q6H PRN, PEPCID 20MG IV Q12H, PROTONIX 40MG IV BID, ZOFRAN 4MG IV Q4H PRN, LOMOTIL 1 TAB QID PRN, MAG OX 400MG BID. HER HOME MEDICATIONS OF DESVENLAFAXINE, ATIVAN, LAMICTAL, GLUCOPHAGE, SINGULAIR, AND REQUIP WERE RESUMED. WE WILL ADD NITAZOXANIDE 500MG PO BID X 3 DAYS. OTHERWISE, WE WILL CONTINUE WITH CURRENT PLAN OF CARE. WE WILL FOLLOW UP WITH AM LABS AND CONTINUE TO MONITOR. TIME SPENT ON CLINICAL ASSESSMENT, REVIEWING LABS AND IMAGING, DECISION MAKING, AND DOCUMENTATION GREATER THAN 45 MINUTES. - Past Medical Family Social History Past Med/Fam/Surg Hx: No changes since H&P Allergies: Allergies codeine Allergy (Verified 11/25/20 15:03) levofloxacin [From Levaquin] Allergy (Verified 11/25/20 15:03) Penicillins Allergy (Verified 11/25/20 15:03) - Review of Systems ROS: No change since H&P - Vital Signs and I&O's Intake and Output: Intake & Output 02/12/23 02/13/23 02/14/23 02/15/23 11:59 11:59 11:59 11:59 Intake Total 2008 3564 / 3564 Balance 2008 3564 / 3564 - Physical Exam Oriented: Normal Eyes: Normal Ear: Normal Nose: Normal Throat: Normal Respiratory: Generalized, Diminished Cardiovascular: Normal : Normal Auscultation: Bowel Sounds: Normal Palpation: Normal Tenderness: Normal Skin: Decreased Turgur Musculoskeletal: Normal Psychiatric: Normal Mood Description: Calm Affect: Normal Speech Pattern: Clear, Appropriate - Laboratory and Diagnostics Result Diagrams: 02/14/23 04:18 02/14/23 04:18 Labs: 02/13/23 16:35 Stool Stool Culture - Preliminary 02/13/23 16:35 Stool - Final 02/12/23 19:10 Urine,Clean Catch Urine Culture - Final Laboratory WBC 6.4 X10^3/uL (3.6-10.0) 02/14/23 04:18 RBC 4.00 X10^6/uL (3.5-5.4) 02/14/23 04:18 Hgb 12.0 g/dL (12.0-16.0) 02/14/23 04:18 Hct 34.0 % (36.0-47.0) L 02/14/23 04:18 MCV 84.9 fL (80.0-100.0) 02/14/23 04:18 MCH 30.0 pg (27.0-34.0) 02/14/23 04:18 MCHC 35.4 g/dL (33.0-35.0) H 02/14/23 04:18 RDW 13.7 % (11.6-16.5) 02/14/23 04:18 Plt Count 380 X10^3/uL (150.0-450.0) 02/14/23 04:18 MPV 8.1 fL (7.4-11.0) 02/14/23 04:18 Neut % (Auto) 65.0 % (42.0-75.0) 02/14/23 04:18 Lymph % (Auto) 25.4 % (21.0-51.0) 02/14/23 04:18 Butts % (Auto) 8.9 % (0.0-13.0) 02/14/23 04:18 Eos % (Auto) 0.2 % (0.9-2.9) L 02/14/23 04:18 Baso % (Auto) 0.5 % (0.2-1.0) 02/14/23 04:18 Neut # (Auto) 4.1 x10^3/uL (2.2-4.8) 02/14/23 04:18 Lymph # (Auto) 1.6 X10^3/uL (1.3-2.9) 02/14/23 04:18 Butts # (Auto) 0.6 x10^3/uL (0.3-0.8) 02/14/23 04:18 Eos # (Auto) 0.0 x10^3/uL (0.0-0.2) 02/14/23 04:18 Baso # (Auto) 0.0 X10^3/uL (0.0-0.1) 02/14/23 04:18 Absolute Nucleated RBC 0.0 /100WBC 02/14/23 04:18 Sodium 143 mmol/L (136-145) 02/14/23 04:18 Corrected Sodium TNP 02/14/23 04:18 Potassium 2.8 mmol/L (3.5-5.1) L* 02/14/23 04:18 Chloride 106 mmol/L (98-107) 02/14/23 04:18 Carbon Dioxide 30.4 mmol/L (21-32) 02/14/23 04:18 BUN 4 mg/dL (7-18) L 02/14/23 04:18 Creatinine 0.62 mg/dL (0.55-1.02) 02/14/23 04:18 Est GFR (MDRD) Af Amer > 60 (>60) 02/14/23 04:18 Est GFR (MDRD) Non-Af > 60 (>60) 02/14/23 04:18 Glucose 110 mg/dL (65-99) H 02/14/23 04:18 Calcium 6.9 mg/dL (8.5-10.1) L 02/14/23 04:18 Corrected Calcium 8.2 mg/dL (8.5-10.1) L 02/14/23 04:18 Magnesium 2.0 mg/dL (2.0-2.9) 02/14/23 04:18 Total Bilirubin 0.40 mg/dL (0.2-1.0) 02/14/23 04:18 AST 25 Units/L (15-37) 02/14/23 04:18 ALT 26 Units/L (12-78) 02/14/23 04:18 Alkaline Phosphatase 69 Units/L (46-116) 02/14/23 04:18 Total Protein 5.4 g/dL (6.4-8.2) L 02/14/23 04:18 Albumin 2.4 g/dL (3.4-5.0) L 02/14/23 04:18 Globulin 3.0 g/dL (2.5-4.5) 02/14/23 04:18 Albumin/Globulin Ratio 0.8 Ratio (1.1-2.1) L 02/14/23 04:18 Amylase 35 Units/L (25-115) 02/12/23 16:10 Lipase 90 Units/L (73-393) 02/12/23 16:10 Specimen Type Clean catch urine 02/12/23 19:10 Urine Color Yellow (YELLOW) 02/12/23 19:10 Urine Appearance Clear (CLEAR) 02/12/23 19:10 Urine pH 6.0 (5.0 - 8.0) 02/12/23 19:10 Ur Specific Porter 1.015 (1.000-1.030) 02/12/23 19:10 Urine Protein 2+ (NEGATIVE) 02/12/23 19:10 Urine Glucose (UA) Negative (NEGATIVE) 02/12/23 19:10 Urine Ketones Negative (NEGATIVE) 02/12/23 19:10 Urine Blood 5+ (NEGATIVE) 02/12/23 19:10 Urine Nitrite Negative (NEGATIVE) 02/12/23 19:10 Urine Bilirubin Negative (NEGATIVE) 02/12/23 19:10 Urine Urobilinogen Normal (NORMAL) 02/12/23 19:10 Ur Leukocyte Esterase Negative (NEGATIVE) 02/12/23 19:10 Urine RBC Tntc /HPF (0-3) A 02/12/23 19:10 Urine WBC 0-2 /HPF (0-5) 02/12/23 19:10 Ur Squamous Epith Cells Few /HPF (NEGATIVE) 02/12/23 19:10 Urine Bacteria Negative /HPF (NEGATIVE) 02/12/23 19:10 Urine Mucus Few /HPF (NEGATIVE) 02/12/23 19:10 Ur Culture Indicated? Yes/culture set up 02/12/23 19:10 Stl Occult Blood (IFOB) Negative (NEGATIVE) 02/13/23 16:35 Stool for White Cells Positive (NEGATIVE) A 02/13/23 16:35 Stl C. diff Tox B Gene Negative (NEGATIVE) 02/13/23 16:35 Stl C. diff [id number] Presumptive negative (NEGATIVE) 02/13/23 16:35 Stool H. pylori Ag Negative (NEGATIVE) 02/13/23 16:35 Cryptosporid parvum Ag Positive (NEGATIVE) A 02/13/23 16:35 Giardia lamblia Ag Negative (NEGATIVE) 02/13/23 16:35 - Plan (1) Dehydration Status: Acute Plan: NORMAL SALINE AT 40 MEQ KCL AT 125 ML/HR, PROTONIX 40MG IV BID, PEPCID 20MG IV Q12H, ZOFRAN 4MG IV Q4H PRN. WE WILL RESUME HER HOME MEDICATIONS OF LOMOTIL, LAMICTAL, ATIVAN, GLUCOPHAGE, SINGULAIR, DESVENLAFAXINE, AND REQUIP (2) Abdominal pain Status: Acute Qualifiers: Abdominal location: generalized Qualified Code(s): R10.84 - Generalized abdominal pain (3) Diarrhea due to cryptosporidium Status: Acute Plan: START NITAZOXANIDE 500MG PO BID X 3 DAYS (4) Intractable nausea and vomiting Status: Acute (5) Hypokalemia Status: Acute (6) Hypomagnesemia Status: Acute
[2023-02-14] MEDS: ZOFRAN INJ 4 MG VIAL IVP PRN (16:50)
[2023-02-14] MEDS: SINGULAIR TAB 10 MG PO SCH (21:22)
[2023-02-15] MEDS: FLAGYL IV PREMIX 500 MG BAG 500 MG/100 ML BAG IV SCH ×4 (02:34→20:09)
[2023-02-15 05:05] LABS: BASOPHILS # (AUTO) 0.2 X10^3/uL (0.0-0.1); BASOPHILS % (AUTO) 3.2 % (0.2-1.0); EOSINOPHILS % (AUTO) 0.1 % (0.9-2.9); HEMATOCRIT 33.1 % (36.0-47.0); HEMOGLOBIN 11.8 g/dL (12.0-16.0); LYMPHOCYTES # (AUTO) 1.5 X10^3/uL (1.3-2.9); MEAN CORPUSCULAR HEMOGLOBIN 30.5 pg (27.0-34.0); MEAN CORPUSCULAR HGB CONC 35.6 g/dL (33.0-35.0); MEAN CORPUSCULAR VOLUME 85.9 fL (80.0-100.0); MEAN PLATELET VOLUME 7.6 fL (7.4-11.0); MONOCYTES # (AUTO) 0.7 x10^3/uL (0.3-0.8); MONOCYTES % (AUTO) 8.9 % (0.0-13.0); NEUTROPHILS # (AUTO) 5.3 x10^3/uL (2.2-4.8); NEUTROPHILS % (AUTO) 67.8 % (42.0-75.0); PLATELET COUNT 373 X10^3/uL (150.0-450.0); RED BLOOD COUNT 3.85 X10^6/uL (3.5-5.4); RED CELL DISTRIBUTION WIDTH 13.7 % (11.6-16.5); WHITE BLOOD COUNT 7.8 X10^3/uL (3.6-10.0)
[2023-02-15 05:23] LABS: ALANINE AMINOTRANSFERASE 21 Units/L (12-78); ALBUMIN 2.3 g/dL (3.4-5.0); ALKALINE PHOSPHATASE 65 Units/L (46-116); ASPARTATE AMINO TRANSFERASE 20 Units/L (15-37); BLOOD UREA NITROGEN 3 mg/dL (7-18); CALCIUM 7.2 mg/dL (8.5-10.1); CARBON DIOXIDE 28.8 mmol/L (21-32); CHLORIDE 106 mmol/L (98-107); COR CA(FOR HYPOALB) 8.6 mg/dL (8.5-10.1); CREATININE 0.62 mg/dL (0.55-1.02); GLUCOSE 106 mg/dL (65-99); SODIUM 142 mmol/L (136-145); TOTAL PROTEIN 5.2 g/dL (6.4-8.2); eGFR NON BLACK RACES > 60 (>60)
[2023-02-15] MEDS: REQUIP PO SCH ×3 (05:27→21:42)
[2023-02-15 05:32] LABS: POTASSIUM 2.9 mmol/L (3.5-5.1)
[2023-02-15] MEDS ORDERED: CONSULT PHARMACY - POTASSIUM & MAGNESIUM XX SCH (06:00)
[2023-02-15] MEDS ORDERED: GLUCOPHAGE ONE (08:06)
[2023-02-15] MEDS: PEPCID 20 MG VIAL 20 MG in NS 50 ML IV 50 ML IV SCH ×2 (08:59→20:09)
[2023-02-15] MEDS: PROTONIX INJ 40 MG VIAL IVP SCH ×2 (09:00→20:10)
[2023-02-15] MEDS: K-DUR TAB 20 MEQ PO SCH ×3 (09:00→12:25)
[2023-02-15] MEDS: DESVENLAFAXINE 100 MG PO SCH (09:00)
[2023-02-15] MEDS: LAMICTAL TAB 100 MG PO SCH ×2 (09:00→20:11)
[2023-02-15] MEDS: MAG-OX TAB PO SCH ×2 (09:00→20:10)
[2023-02-15] MEDS: GLUCOPHAGE PO SCH ×2 (09:42→20:16)
[2023-02-15] MEDS ORDERED: TYLENOL 325 MG TAB PO PRN (10:02)
[2023-02-15] MEDS: NS + KCL 40 MEQ/L 1,000 ML IV SCH ×4 (10:03→20:08)
[2023-02-15] MEDS: ZOFRAN INJ 4 MG VIAL IVP PRN (10:39)
[2023-02-15] MEDS ORDERED: NITAZOXANIDE PO SCH (12:00)
[2023-02-15] MEDS: NITAZOXANIDE PO SCH ×2 (12:26→20:11)
--- NOTE | 2023-02-15 12:54 | PCM.PROG ---
Progress Note - Progress Note for Day of Date of Exam: 02/15/23 - Subjective Subjective: IS CURRENTLY INPATIENT STATUS FOR TREATMENT OF DEHYDRATION, ABDOMINAL PAIN, INTRACTABLE NAUSEA AND VOMITING, INTRACTABLE DIARRHEA DUE TO CRYPTOSPORIDIUM PARVUM, AND ELECTROLYTE DEPLETION. TODAY, SHE IS ALERT AND ORIENTED, LYING IN BED ON MORNING ROUNDS. SHE CONTINUES TO COMPLAIN OF DIFFUSE ABDOMINAL PAIN, GENERALIZED WEAKNESS, DIARRHEA, AND NAUSEA THIS MORNING. SHE DENIES VOMITING THROUGHOUT THE NIGHT. SHE DOES ADMIT TO JUST SLIGHT IMPROVEMENT IN SYMPTOMS SINCE ADMISSION. ON EXAMINATION, HEART IS REGULAR IN RATE AND RHYHTM. BILATERAL LUNGS ARE CLEAR TO AUSCULTATION. ABDOMEN IS ROUND, SOFT, AND NOTED WITH DIFFUSE TENDERNESS. HYPERACTIVE BOWEL SOUNDS ARE NOTED. GOOD RANGE OF MOTION NOTED TO UPPER AND LOWER EXTREMITIES WITH NO EDEMA NOTED. HER VITALS THIS MORNING ARE: 98.3-92-20-98%-120/78. LABS WERE OBTAINED. WBC 7.8, RBC 3.85, HGB 11.8, HCT 33.1, PLT COUNT 273, SODIUM 142, POTASSIUM 2.9, CHLORIDE 106, BUN 3, CREATININE 0.62, GLUCOSE 106, CALCIUM 7.2, AST 20, ALT 21, ALK PHOS 65, TOTAL PROTEIN 5.2, ALBUMIN 2.3. URINE AND STOOL CULTURES IS PENDING. STOOL STUDIES WERE POSITIVE FOR WHITE CELLS AND CRYPTOSPORIDIUM PARVUM. AN ABDOMEN/PELVIS CT WITH CONTRAST WAS OBTAINED YESTERDAY AND REVEALED: Numerous shotty and borderline enlarged mesenteric lymph nodes are seen throughout the mid abdomen and in the lower pelvis and right lower quadrant which can be seen with acute or subacute mesenteric adenitis. However, since early follicular lymphoma can also give this abdominal CT appearance, close interval follow-up with repeat abdominopelvic CT imaging with IV and oral contrast within 3 months is recommended for assurance. Postsurgical changes are seen within the stomach. Small distal hiatal hernia. SHE IS CURRENTLY RECEIVING NORMAL SALINE WITH 40MEQ KCL AT 125 ML/HR, FLAGYL 500MG IV Q6H PRN, PEPCID 20MG IV Q12H, PROTONIX 40MG IV BID, ZOFRAN 4MG IV Q4H PRN, LOMOTIL 1 TAB QID PRN, MAG OX 400MG BID. HER HOME MEDICATIONS OF DESVENLAFAXINE, ATIVAN, LAMICTAL, GLUCOPHAGE, SINGULAIR, AND REQUIP WERE RESUMED. WE WILL ADD NITAZOXANIDE 500MG PO BID X 3 DAYS. OTHERWISE, WE WILL CONTINUE WITH CURRENT PLAN OF CARE. WE WILL FOLLOW UP WITH AM LABS AND CONTINUE TO MONITOR. TIME SPENT ON CLINICAL ASSESSMENT, REVIEWING LABS AND IMAGING, DECISION MAKING, AND DOCUMENTATION GREATER THAN 45 MINUTES. - Past Medical Family Social History Past Med/Fam/Surg Hx: No changes since H&P Allergies: Allergies codeine Allergy (Verified 11/25/20 15:03) levofloxacin [From Levaquin] Allergy (Verified 11/25/20 15:03) Penicillins Allergy (Verified 11/25/20 15:03) - Review of Systems ROS: No change since H&P - Vital Signs and I&O's Vital Signs: Vital Signs Respiratory Rate 18 Respiratory Rate 18 Intake and Output: Intake & Output 02/13/23 02/14/23 02/15/23 02/16/23 11:59 11:59 11:59 11:59 Intake Total 2008 3564 / 3564 5172 / 5172 Balance 2008 3564 / 3564 5172 / 5172 - Physical Exam Oriented: Normal Eyes: Normal Ear: Normal Nose: Normal Throat: Normal Respiratory: Generalized, Diminished Cardiovascular: Normal : Normal Auscultation: Bowel Sounds: Normal Palpation: Normal Tenderness: Normal Skin: Normal Musculoskeletal: Normal Psychiatric: Normal Mood Description: Calm Affect: Normal Speech Pattern: Clear, Appropriate - Laboratory and Diagnostics Result Diagrams: 02/15/23 04:33 02/15/23 04:33 Labs: 02/13/23 16:35 Stool Stool Culture - Final 02/13/23 16:35 Stool - Final 02/12/23 19:10 Urine,Clean Catch Urine Culture - Final Laboratory WBC 7.8 X10^3/uL (3.6-10.0) 02/15/23 04:33 RBC 3.85 X10^6/uL (3.5-5.4) 02/15/23 04:33 Hgb 11.8 g/dL (12.0-16.0) L 02/15/23 04:33 Hct 33.1 % (36.0-47.0) L 02/15/23 04:33 MCV 85.9 fL (80.0-100.0) 02/15/23 04:33 MCH 30.5 pg (27.0-34.0) 02/15/23 04:33 MCHC 35.6 g/dL (33.0-35.0) H 02/15/23 04:33 RDW 13.7 % (11.6-16.5) 02/15/23 04:33 Plt Count 373 X10^3/uL (150.0-450.0) 02/15/23 04:33 MPV 7.6 fL (7.4-11.0) 02/15/23 04:33 Neut % (Auto) 67.8 % (42.0-75.0) 02/15/23 04:33 Lymph % (Auto) 20.0 % (21.0-51.0) L 02/15/23 04:33 [place] % (Auto) 8.9 % (0.0-13.0) 02/15/23 04:33 Eos % (Auto) 0.1 % (0.9-2.9) L 02/15/23 04:33 Baso % (Auto) 3.2 % (0.2-1.0) H 02/15/23 04:33 Neut # (Auto) 5.3 x10^3/uL (2.2-4.8) H 02/15/23 04:33 Lymph # (Auto) 1.5 X10^3/uL (1.3-2.9) 02/15/23 04:33 [place] # (Auto) 0.7 x10^3/uL (0.3-0.8) 02/15/23 04:33 Eos # (Auto) 0.0 x10^3/uL (0.0-0.2) 02/15/23 04:33 Baso # (Auto) 0.2 X10^3/uL (0.0-0.1) H 02/15/23 04:33 Absolute Nucleated RBC 0.0 /100WBC 02/15/23 04:33 Sodium 142 mmol/L (136-145) 02/15/23 04:33 Corrected Sodium TNP 02/15/23 04:33 Potassium 2.9 mmol/L (3.5-5.1) L* 02/15/23 04:33 Chloride 106 mmol/L (98-107) 02/15/23 04:33 Carbon Dioxide 28.8 mmol/L (21-32) 02/15/23 04:33 BUN 3 mg/dL (7-18) L 02/15/23 04:33 Creatinine 0.62 mg/dL (0.55-1.02) 02/15/23 04:33 Est GFR (MDRD) Af Amer > 60 (>60) 02/15/23 04:33 Est GFR (MDRD) Non-Af > 60 (>60) 02/15/23 04:33 Glucose 106 mg/dL (65-99) H 02/15/23 04:33 Calcium 7.2 mg/dL (8.5-10.1) L 02/15/23 04:33 Corrected Calcium 8.6 mg/dL (8.5-10.1) 02/15/23 04:33 Magnesium 2.0 mg/dL (2.0-2.9) 02/14/23 04:18 Total Bilirubin 0.30 mg/dL (0.2-1.0) 02/15/23 04:33 AST 20 Units/L (15-37) 02/15/23 04:33 ALT 21 Units/L (12-78) 02/15/23 04:33 Alkaline Phosphatase 65 Units/L (46-116) 02/15/23 04:33 Total Protein 5.2 g/dL (6.4-8.2) L 02/15/23 04:33 Albumin 2.3 g/dL (3.4-5.0) L 02/15/23 04:33 Globulin 2.9 g/dL (2.5-4.5) 02/15/23 04:33 Albumin/Globulin Ratio 0.8 Ratio (1.1-2.1) L 02/15/23 04:33 Amylase 35 Units/L (25-115) 02/12/23 16:10 Lipase 90 Units/L (73-393) 02/12/23 16:10 Specimen Type Clean catch urine 02/12/23 19:10 Urine Color Yellow (YELLOW) 02/12/23 19:10 Urine Appearance Clear (CLEAR) 02/12/23 19:10 Urine pH 6.0 (5.0 - 8.0) 02/12/23 19:10 Ur Specific [place] 1.015 (1.000-1.030) 02/12/23 19:10 Urine Protein 2+ (NEGATIVE) 02/12/23 19:10 Urine Glucose (UA) Negative (NEGATIVE) 02/12/23 19:10 Urine Ketones Negative (NEGATIVE) 02/12/23 19:10 Urine Blood 5+ (NEGATIVE) 02/12/23 19:10 Urine Nitrite Negative (NEGATIVE) 02/12/23 19:10 Urine Bilirubin Negative (NEGATIVE) 02/12/23 19:10 Urine Urobilinogen Normal (NORMAL) 02/12/23 19:10 Ur Leukocyte Esterase Negative (NEGATIVE) 02/12/23 19:10 Urine RBC Tntc /HPF (0-3) A 02/12/23 19:10 Urine WBC 0-2 /HPF (0-5) 02/12/23 19:10 Ur Squamous Epith Cells Few /HPF (NEGATIVE) 02/12/23 19:10 Urine Bacteria Negative /HPF (NEGATIVE) 02/12/23 19:10 Urine Mucus Few /HPF (NEGATIVE) 02/12/23 19:10 Ur Culture Indicated? Yes/culture set up 02/12/23 19:10 Stl Occult Blood (IFOB) Negative (NEGATIVE) 02/13/23 16:35 Stool for White Cells Positive (NEGATIVE) A 02/13/23 16:35 Stl C. diff Tox B Gene Negative (NEGATIVE) 02/13/23 16:35 Stl C. diff [id number] Presumptive negative (NEGATIVE) 02/13/23 16:35 Stool H. pylori Ag Negative (NEGATIVE) 02/13/23 16:35 Cryptosporid parvum Ag Positive (NEGATIVE) A 02/13/23 16:35 Giardia lamblia Ag Negative (NEGATIVE) 02/13/23 16:35 - Plan (1) Dehydration Status: Acute Plan: NORMAL SALINE AT 40 MEQ KCL AT 125 ML/HR, PROTONIX 40MG IV BID, PEPCID 20MG IV Q12H, ZOFRAN 4MG IV Q4H PRN. WE WILL RESUME HER HOME MEDICATIONS OF LOMOTIL, LAMICTAL, ATIVAN, GLUCOPHAGE, SINGULAIR, DESVENLAFAXINE, AND REQUIP (2) Abdominal pain Status: Acute Qualifiers: Abdominal location: generalized Qualified Code(s): R10.84 - Generalized abdominal pain (3) Diarrhea due to cryptosporidium Status: Acute Plan: START NITAZOXANIDE 500MG PO BID X 3 DAYS (4) Intractable nausea and vomiting Status: Acute (5) Hypokalemia Status: Acute (6) Hypomagnesemia Status: Acute
[2023-02-15] MEDS: SINGULAIR TAB 10 MG PO SCH (20:11)
[2023-02-16 04:45] VITALS: TEMP 98.2
[2023-02-16] MEDS: FLAGYL IV PREMIX 500 MG BAG 500 MG/100 ML BAG IV SCH (05:36)
[2023-02-16] MEDS: NS + KCL 40 MEQ/L 1,000 ML IV SCH ×2 (05:37)
[2023-02-16] MEDS: REQUIP PO SCH (05:42)
[2023-02-16 06:15] LABS: BASOPHILS % (AUTO) 0.3 % (0.2-1.0); EOSINOPHILS % (AUTO) 0.1 % (0.9-2.9); HEMATOCRIT 32.1 % (36.0-47.0); HEMOGLOBIN 11.3 g/dL (12.0-16.0); LYMPHOCYTES # (AUTO) 1.5 X10^3/uL (1.3-2.9); LYMPHOCYTES % (AUTO) 21.5 % (21.0-51.0); MEAN CORPUSCULAR HEMOGLOBIN 30.5 pg (27.0-34.0); MEAN CORPUSCULAR HGB CONC 35.2 g/dL (33.0-35.0); MEAN CORPUSCULAR VOLUME 86.7 fL (80.0-100.0); MEAN PLATELET VOLUME 7.4 fL (7.4-11.0); MONOCYTES # (AUTO) 0.8 x10^3/uL (0.3-0.8); MONOCYTES % (AUTO) 11.6 % (0.0-13.0); NEUTROPHILS # (AUTO) 4.7 x10^3/uL (2.2-4.8); NEUTROPHILS % (AUTO) 66.5 % (42.0-75.0); PLATELET COUNT 395 X10^3/uL (150.0-450.0); RED CELL DISTRIBUTION WIDTH 14.3 % (11.6-16.5); WHITE BLOOD COUNT 7.1 X10^3/uL (3.6-10.0)
[2023-02-16 06:34] LABS: ALANINE AMINOTRANSFERASE 15 Units/L (12-78); ALBUMIN 2.2 g/dL (3.4-5.0); ALKALINE PHOSPHATASE 60 Units/L (46-116); ASPARTATE AMINO TRANSFERASE 17 Units/L (15-37); BLOOD UREA NITROGEN 2 mg/dL (7-18); CALCIUM 7.2 mg/dL (8.5-10.1); CARBON DIOXIDE 25.9 mmol/L (21-32); CHLORIDE 108 mmol/L (98-107); COR CA(FOR HYPOALB) 8.6 mg/dL (8.5-10.1); COR NA(FOR HYPERGLY) 142 mmol/L (136-145); CREATININE 0.65 mg/dL (0.55-1.02); GLUCOSE 117 mg/dL (65-99); POTASSIUM 3.9 mmol/L (3.5-5.1); SODIUM 142 mmol/L (136-145); eGFR NON BLACK RACES > 60 (>60)
[2023-02-16] MEDS ORDERED: GLUCOPHAGE ONE (08:22)
[2023-02-16] MEDS ORDERED: CONSULT PHARMACY - POTASSIUM & MAGNESIUM XX SCH (09:00)
[2023-02-16] MEDS ORDERED: MAG-OX TAB PO SCH ×2 (09:00→21:00)
[2023-02-16 11:31] VITALS: BP 106/72; PULSE 98; RESP 18; O2SAT 95
== END 2023-02-16 11:30 | disposition home or self-care (01) | DRG 373 ==
LOC: ICU → MED/SURG
PROVIDERS: ADMIT Internal Medicine; ATTEND Internal Medicine

== ENCOUNTER 2023-02-20 14:10 | Observation (INO) ==
[2023-02-20] MEDS ORDERED: ZOFRAN INJ 4 MG VIAL IVP PRN (16:22)
[2023-02-20] MEDS ORDERED: PHENERGAN INJ 25 MG IM PRN (16:25)
[2023-02-20 16:54] LABS: BASOPHILS % (AUTO) 0.2 % (0.2-1.0); EOSINOPHILS % (AUTO) 0.1 % (0.9-2.9); HEMATOCRIT 39.2 % (36.0-47.0); HEMOGLOBIN 13.1 g/dL (12.0-16.0); LYMPHOCYTES # (AUTO) 2.4 X10^3/uL (1.3-2.9); LYMPHOCYTES % (AUTO) 28.9 % (21.0-51.0); MEAN CORPUSCULAR HEMOGLOBIN 29.2 pg (27.0-34.0); MEAN CORPUSCULAR HGB CONC 33.3 g/dL (33.0-35.0); MEAN CORPUSCULAR VOLUME 87.7 fL (80.0-100.0); MEAN PLATELET VOLUME 7.2 fL (7.4-11.0); MONOCYTES # (AUTO) 0.9 x10^3/uL (0.3-0.8); MONOCYTES % (AUTO) 10.4 % (0.0-13.0); NEUTROPHILS # (AUTO) 5.1 x10^3/uL (2.2-4.8); NEUTROPHILS % (AUTO) 60.4 % (42.0-75.0); PLATELET COUNT 442 X10^3/uL (150.0-450.0); RED BLOOD COUNT 4.48 X10^6/uL (3.5-5.4); RED CELL DISTRIBUTION WIDTH 14.2 % (11.6-16.5); WHITE BLOOD COUNT 8.5 X10^3/uL (3.6-10.0)
[2023-02-20] MEDS ORDERED: CONSULT PHARMACY - POTASSIUM & MAGNESIUM XX SCH ×2 (17:00→19:00)
[2023-02-20] MEDS ORDERED: NS 1,000 ML IV 1,000 ML IV SCH (17:00)
[2023-02-20 17:07] LABS: ALANINE AMINOTRANSFERASE 14 Units/L (12-78); ALBUMIN 2.9 g/dL (3.4-5.0); ALKALINE PHOSPHATASE 103 Units/L (46-116); AMYLASE 43 Units/L (25-115); ASPARTATE AMINO TRANSFERASE 14 Units/L (15-37); BLOOD UREA NITROGEN 6 mg/dL (7-18); CALCIUM 8.1 mg/dL (8.5-10.1); CARBON DIOXIDE 39.4 mmol/L (21-32); CHLORIDE 99 mmol/L (98-107); COR NA(FOR HYPERGLY) 141 mmol/L (136-145); CREATININE 0.72 mg/dL (0.55-1.02); GLUCOSE 120 mg/dL (65-99); LIPASE 112 Units/L (73-393); MAGNESIUM 1.9 mg/dL (2.0-2.9); SODIUM 141 mmol/L (136-145); TOTAL PROTEIN 6.4 g/dL (6.4-8.2); eGFR NON BLACK RACES > 60 (>60)
[2023-02-20] MEDS: FLAGYL IV PREMIX 500 MG BAG 500 MG/100 ML BAG IV SCH ×2 (17:57→20:03)
[2023-02-20] MEDS: NS 1,000 ML IV 1,000 ML IV SCH (17:57)
[2023-02-20] MEDS: BENTYL CAP 10 MG PO SCH ×2 (17:57→20:02)
[2023-02-20] MEDS ORDERED: K-DUR TAB 20 MEQ PO ONE (18:00)
[2023-02-20] MEDS: MAGNESIUM SULFATE 1 GRAM/100 mL PREMIX 1 G/100 ML BAG IV SCH ×2 (19:05→20:03)
--- NOTE | 2023-02-20 21:04 | RAD ---
HISTORYABD PAINSTUDYACUTE ABDOMEN [id number] trachea is midline. The cardiac silhouette is [unremarkable]. [The lungs are clear without focal mass or consolidation. There is no effusion or pneumothorax.] [The bony thorax is unremarkable].Flat plate and upright evaluation of the abdomen demonstrates a [normal bowel gas pattern]. There is moderate stool throughout the colon. There is no pneumoperitoneum. No pathological soft tissue mass or calcification can be observed. Cholecystectomy clips. The bony structures are grossly intact.IMPRESSION1. [No acute cardiopulmonary disease.]2. [Moderate colonic stool burden, may reflect constipation. Bowel gas pattern is nonobstructive.Electronically signed by: Magdy Rodgers (Feb 20, 2023 21:03:47)
[2023-02-20 22:05] LABS: BILIRUBIN,URINE NEGATIVE (NEGATIVE); BLOOD/HEMOGLOBIN,URINE NEGATIVE (NEGATIVE); GLUCOSE, URINE NEGATIVE (NEGATIVE); KETONES,URINE NEGATIVE (NEGATIVE); LEUKOCYTE ESTERASE ,URINE NEGATIVE (NEGATIVE); NITRITES,URINE NEGATIVE (NEGATIVE); PROTEIN,URINE NEGATIVE (NEGATIVE); UROBILINOGEN,URINE NORMAL (NORMAL)
[2023-02-20 22:09] LABS: APPEARANCE,URINE CLEAR (CLEAR); COLOR,URINE YELLOW (YELLOW)
[2023-02-20 22:38] VITALS: BMI 34.8
[2023-02-21] MEDS: NS 1,000 ML IV 1,000 ML IV SCH ×4 (00:47→19:52)
[2023-02-21] MEDS: FLAGYL IV PREMIX 500 MG BAG 500 MG/100 ML BAG IV SCH ×2 (02:36→08:33)
[2023-02-21 06:25] LABS: BASOPHILS # (AUTO) 0.1 X10^3/uL (0.0-0.1); BASOPHILS % (AUTO) 0.7 % (0.2-1.0); EOSINOPHILS % (AUTO) 0.1 % (0.9-2.9); HEMATOCRIT 36.1 % (36.0-47.0); HEMOGLOBIN 12.2 g/dL (12.0-16.0); LYMPHOCYTES # (AUTO) 2.3 X10^3/uL (1.3-2.9); LYMPHOCYTES % (AUTO) 32.5 % (21.0-51.0); MEAN CORPUSCULAR HEMOGLOBIN 29.5 pg (27.0-34.0); MEAN CORPUSCULAR HGB CONC 33.7 g/dL (33.0-35.0); MEAN CORPUSCULAR VOLUME 87.5 fL (80.0-100.0); MEAN PLATELET VOLUME 7.4 fL (7.4-11.0); MONOCYTES # (AUTO) 0.7 x10^3/uL (0.3-0.8); MONOCYTES % (AUTO) 9.4 % (0.0-13.0); NEUTROPHILS # (AUTO) 4.1 x10^3/uL (2.2-4.8); NEUTROPHILS % (AUTO) 57.3 % (42.0-75.0); PLATELET COUNT 377 X10^3/uL (150.0-450.0); RED BLOOD COUNT 4.12 X10^6/uL (3.5-5.4); WHITE BLOOD COUNT 7.1 X10^3/uL (3.6-10.0)
[2023-02-21 06:38] LABS: ALANINE AMINOTRANSFERASE 12 Units/L (12-78); ALBUMIN 2.3 g/dL (3.4-5.0); ALKALINE PHOSPHATASE 81 Units/L (46-116); ASPARTATE AMINO TRANSFERASE 16 Units/L (15-37); BLOOD UREA NITROGEN 6 mg/dL (7-18); CALCIUM 7.5 mg/dL (8.5-10.1); CARBON DIOXIDE 35.9 mmol/L (21-32); CHLORIDE 100 mmol/L (98-107); COR CA(FOR HYPOALB) 8.9 mg/dL (8.5-10.1); CREATININE 0.57 mg/dL (0.55-1.02); GLUCOSE 92 mg/dL (65-99); MAGNESIUM 2.1 mg/dL (2.0-2.9); POTASSIUM 3.5 mmol/L (3.5-5.1); SODIUM 139 mmol/L (136-145); TOTAL PROTEIN 5.6 g/dL (6.4-8.2); eGFR NON BLACK RACES > 60 (>60)
[2023-02-21] MEDS: BENTYL CAP 10 MG PO SCH ×4 (08:32→21:22)
[2023-02-21] MEDS ORDERED: ATIVAN TAB 1 MG PO PRN (09:58)
[2023-02-21] MEDS: DESVENLAFAXINE 100 MG PO SCH ×2 (10:30→12:15)
[2023-02-21] MEDS ORDERED: K-DUR TAB 20 MEQ PO ONE (11:00)
--- NOTE | 2023-02-21 11:14 | DR.UPDATE ---
H&P Update Prescription drug monitoring program results: PDMP reviewed with concerns identified H&P Reviewed: Yes Any changes to H&P?: Yes Changes noted:: WAS HOSPITALIZED FROM 02/12 UNTIL 02/16/23 FOR TREATMENT DEHYDRATION, DIARRHEA DUE TO CRYPTOSPORIDIUM PARVUM, ABDOMINAL PAIN, INTRACTABLE NAUSEA AND VOMITING, AND ELECTROLYTE DEPLETION. SHE WAS DISCHARGED HOME WITH INSTRUCTIONS TO FINISH HER 3 DAYS COURSE OF NITAZOXANIDE 500MG BID. PATIENT REPORTED THAT SHE HAS CONTINUED TO HAVE NAUSEA AND VOMITING SINCE DISCHARGE. SHE REPORTS THAT SHE CONTINUES TO HAVE A SMALL AMOUNT OF LIQUID STOOL AND ABDOMINAL CRAMPING. SHE REPORTS TAKING HER ZOFRAN AND PHENERGAN PRESCRIBED, HOWEVER, SYMPTOMS ARE PERSISTENT. DECISION WAS MADE TO READMIT PATIENT FOR FURTHER EVALUATION AND TREATMENT OF INTRACTABLE NAUSEA AND VOMITING, ABDOMINAL PAIN, GENERALIZED WEAKNESS. ON ARRIVAL, HER VITALS WERE 98.2-110-20-92%-111/73. LABS WERE OBTAINED. WBC 8.5, RBC 4.48, HGB 13.1, HCT 39.2, PLT COUNT 442, SODIUM 141, POTASSIUM 3.0, CHLORIDE 999, CARBON DIOXIDE 39.4, BUN 6, CREATININE 0.72, GLUCOSE 120, CALCIUM 8.1, MAGNESIUM 1.9, TOTAL BILI 0.30, AST 14, ALT 14, ALK PHOS 103, TOTAL PROTEIN 6.4, ALBUMIN 2.9, AMYLASE 43, LIPASE 112. URINALYSIS WAS OBTAINED AND WAS NORMAL. BLOOD CULTURES WERE SET UP. AN ABDOMINAL SERIES WAS OBTAINED AND REVEALED: The trachea is midline. The cardiac silhouette is unremarkable. The lungs are clear without focal mass or consolidation. There is no effusion or pneumothorax. The bony thorax is unremarkable. Flat plate and. upright evaluation of the abdomen demonstrates a [normal bowel gas pattern. There is moderate stool throughout the colon. There is no pneumoperitoneum. No pathological soft tissue mass or calcification can be observed. Cholecystectomy clips. The bony structures are grossly intact. AN ABDOMEN/PELVIS CT WITH CONTRAST WAS OBTAINED ON HER LAST VISIT AND REVEALED: Numerous shotty and borderline. enlarged mesenteric lymph nodes are seen throughout the mid abdomen and in the lower pelvis and right lower quadrant which can be seen with acute or subacute mesenteric adenitis. However, since early follicular lymphoma can also give this abdominal CT appearance, close interval follow-up with repeat abdominopelvic CT imaging with IV and oral contrast within 3 months is recommended for assurance. Postsurgical changes are seen within the stomach. Small distal hiatal hernia. No acute mesenteric inflammation or other acute abdo minopelvic process is identified. SHE WAS STARTED ON NORMAL SALINE AT 125 ML/HR, PEPCID 20MG IV Q12H, PROTONIX 40MG IV BID, DICYCLOMINE 20MG QID, ZOFRAN 4MG IV Q4H PRN, PHENERGAN 25MG IM Q6H PRN. HER HOME MEDICATIONS OF LAMICTAL, ATIVAN PRN, GLUCOPHAGE, TOPROL XL, SINGULAIR, K-DUR, REQUIP, AND DESVENLAFAXINE WERE RESUMED. WE WILL CONSULT , [employer], FOR POSSIBLE ENDOSCOPY. OTHERWISE, WE WILL FOLLOW UP WITH AM LABS AND CONTINUE TO MONITOR. TIME SPENT ON CLINICAL ASSESSMENT, REVIEWING LABS AND IMAGING, DECISION MAKING, AND DOCUMENTATION GREATER THAN 75 MINUTES. Patient was examined?: Yes
[2023-02-21] MEDS ORDERED: GLUCOPHAGE ONE ×2 (11:50→20:45)
[2023-02-21] MEDS: REQUIP PO SCH ×3 (12:15→21:22)
[2023-02-21] MEDS: GLUCOPHAGE PO SCH ×2 (12:15→21:22)
[2023-02-21] MEDS: LAMICTAL TAB 100 MG PO SCH ×2 (12:15→21:23)
[2023-02-21] MEDS: PROTONIX INJ 40 MG VIAL IVP SCH ×2 (15:36→21:21)
[2023-02-21] MEDS: PEPCID 20 MG VIAL 20 MG in NS 50 ML IV 50 ML IV SCH ×3 (15:37→21:22)
[2023-02-21] MEDS: K-DUR TAB 20 MEQ PO SCH (21:22)
[2023-02-21] MEDS: SINGULAIR TAB 10 MG PO SCH (21:22)
[2023-02-22] MEDS: NS 1,000 ML IV 1,000 ML IV SCH ×4 (00:12→18:45)
[2023-02-22] MEDS: REQUIP PO SCH ×3 (05:09→21:01)
[2023-02-22 06:26] LABS: BASOPHILS % (AUTO) 0.5 % (0.2-1.0); HEMOGLOBIN 12.7 g/dL (12.0-16.0); LYMPHOCYTES # (AUTO) 0.8 X10^3/uL (1.3-2.9); LYMPHOCYTES % (AUTO) 14.4 % (21.0-51.0); MEAN CORPUSCULAR HEMOGLOBIN 29.9 pg (27.0-34.0); MEAN CORPUSCULAR HGB CONC 34.3 g/dL (33.0-35.0); MEAN CORPUSCULAR VOLUME 87.2 fL (80.0-100.0); MEAN PLATELET VOLUME 7.5 fL (7.4-11.0); MONOCYTES # (AUTO) 0.4 x10^3/uL (0.3-0.8); MONOCYTES % (AUTO) 7.2 % (0.0-13.0); NEUTROPHILS # (AUTO) 4.2 x10^3/uL (2.2-4.8); NEUTROPHILS % (AUTO) 77.9 % (42.0-75.0); PLATELET COUNT 358 X10^3/uL (150.0-450.0); RED BLOOD COUNT 4.24 X10^6/uL (3.5-5.4); WHITE BLOOD COUNT 5.4 X10^3/uL (3.6-10.0)
[2023-02-22 06:57] LABS: ALANINE AMINOTRANSFERASE 19 Units/L (12-78); ALBUMIN 2.6 g/dL (3.4-5.0); ALKALINE PHOSPHATASE 87 Units/L (46-116); ASPARTATE AMINO TRANSFERASE 31 Units/L (15-37); BLOOD UREA NITROGEN 6 mg/dL (7-18); CALCIUM 7.9 mg/dL (8.5-10.1); CARBON DIOXIDE 31.3 mmol/L (21-32); CHLORIDE 103 mmol/L (98-107); GLUCOSE 100 mg/dL (65-99); POTASSIUM 3.6 mmol/L (3.5-5.1); SODIUM 140 mmol/L (136-145); eGFR NON BLACK RACES > 60 (>60)
[2023-02-22] MEDS ORDERED: GLUCOPHAGE ONE ×2 (07:39→20:43)
[2023-02-22] MEDS ORDERED: CONSULT PHARMACY - POTASSIUM & MAGNESIUM XX SCH (08:00)
[2023-02-22] MEDS ORDERED: K-DUR TAB 20 MEQ PO SCH (09:00)
[2023-02-22] MEDS: LAMICTAL TAB 100 MG PO SCH ×2 (09:47→21:01)
[2023-02-22] MEDS: BENTYL CAP 10 MG PO SCH ×4 (09:47→21:01)
[2023-02-22] MEDS: PROTONIX INJ 40 MG VIAL IVP SCH ×3 (09:48→21:00)
[2023-02-22] MEDS: GLUCOPHAGE PO SCH ×2 (09:48→21:01)
[2023-02-22] MEDS: PEPCID 20 MG VIAL 20 MG in NS 50 ML IV 50 ML IV SCH ×3 (09:48→21:00)
[2023-02-22] MEDS: TOPROL XL PO SCH ×2 (09:52→21:01)
[2023-02-22] MEDS: DESVENLAFAXINE 100 MG PO SCH (09:52)
[2023-02-22] MEDS ORDERED: FIORICET TAB PO PRN (10:46)
--- NOTE | 2023-02-22 11:06 | PCM.PROG ---
Progress Note - Progress Note for Day of Date of Exam: 02/22/23 - Subjective Subjective: IS CURRENTLY INPATIENT STATUS FOR TREATMENT OF INTRACTABLE NAUSEA AND VOMITING, ABDOMINAL PAIN, AND GENERALIZED WEAKNESS. TODAY, SHE IS ALERT AND ORIENTED, LYING IN BED ON MORNING ROUNDS. SHE CONTINUES TO COMPLAIN OF DIFFUSE ABDOMINAL CRAMPING, GENERALIZED WEAKNESS, LOOSE STOOLS, AND NAUSEA THIS MORNING. SHE DENIES VOMITING THROUGHOUT THE NIGHT. ADDITIONALLY, SHE COMPLAINS OF A NON-PRODUCTIVE COUGH, HEADACHE, AND ELEVATED TEMPERATURE. IT LOOKS LIKE THE HIGHEST THAT HER TEMPERATURE HAS GOTTEN IS 99.1. SHE DENIES SIGNIFICANT IMPROVEMENT IN SYMPTOMS THROUGHOUT THE DAY. ON EXAMINATION, HEART IS REGULAR IN RATE AND RHYHTM. BILATERAL LUNGS ARE CLEAR TO AUSCULTATION. ABDOMEN IS ROUND, SOFT, AND NOTED WITH DIFFUSE TENDERNESS. HYPERACTIVE BOWEL SOUNDS ARE NOTED. GOOD RANGE OF MOTION NOTED TO UPPER AND LOWER EXTREMITIES WITH NO EDEMA NOTED. HER VITALS THIS MORNING ARE: 99.1-100-20-97%-122/80. LABS WERE OBTAINED. WBC 5.4, RBC 4.24, HGB 12.7, HCT 37.0, PLT COUNT 358, SODIUM 140, POTASSIUM 3.6, CHLORIDE 103, BUN 6, CREATININE 0.70, GLUCOSE 100, CALCIUM 7.9, AST 31, ALT 19, ALK PHOS 87, TOTAL PROTEIN 6.0, ALBUMIN 2.6. URINE AND BLOOD CULTURES IS PENDING. STOOL STUDIES ON HER LAST VISIT WERE POSITIVE FOR WHITE CELLS AND CRYPTOSPORIDIUM PARVUM. SHE IS CURRENTLY RECEIVING NORMAL SALINE AT 125 ML/HR, PEPCID 20MG IV Q12H, PROTONIX 40MG IV BID, DICYCLOMINE 20MG QID, ZOFRAN 4MG IV Q4H PRN, PHENERGAN 25MG IM Q6H PRN. HER HOME MEDICATIONS OF LAMICTAL, ATIVAN PRN, GLUCOPHAGE, TOPROL XL, SINGULAIR, K-DUR, REQUIP, AND DESVENLAFAXINE WERE RESUMED. WE CONSULTED , TOOL SMITH, FOR POSSIBLE ENDOSCOPY. HE SHOULD SEE HER THIS MORNING. WE WILL CHECK A RESPIRATORY PANEL, CHEST XRAY, AND ADD FIORICET 2 TABS Q8H PRN. OTHERWISE, WE WILL CONTINUE WITH CURRENT PLAN OF CARE. WE WILL FOLLOW UP WITH AM LABS AND CONTINUE TO MONITOR. TIME SPENT ON CLINICAL ASSESSMENT, REVIEWING LABS AND IMAGING, DECISION MAKING, AND DOCUMENTATION GREATER THAN 45 MINUTES. - Past Medical Family Social History Past Med/Fam/Surg Hx: No changes since H&P Allergies: Allergies codeine Allergy (Verified 02/20/23 18:04) levofloxacin [From Levaquin] Allergy (Verified 02/20/23 18:04) Penicillins Allergy (Verified 02/20/23 18:04) - Review of Systems ROS: No change since H&P - Vital Signs and I&O's Vital Signs: Vital Signs Temperature 99.1 F Temperature 99.1 F Pulse Rate [Right Brachial] 100 Pulse Rate [Right Brachial] 100 Respiratory Rate 20 Respiratory Rate 20 Blood Pressure [Right Arm] 122/80 Blood Pressure [Right Arm] 122/80 O2 Sat by Pulse Oximetry 97 O2 Sat by Pulse Oximetry 97 Intake and Output: Intake & Output 02/19/23 02/20/23 02/21/23 02/22/23 11:59 11:59 11:59 11:59 Intake Total 1250 / 1250 3500 / 3500 Balance 1250 / 1250 3500 / 3500 - Physical Exam Oriented: Normal Eyes: Normal Ear: Normal Nose: Normal Throat: Normal Respiratory: Normal Cardiovascular: Normal : Normal Auscultation: Bowel Sounds: Normal Palpation: Normal Tenderness: Diffuse, Mild Skin: Normal Musculoskeletal: Normal Psychiatric: Normal Mood Description: Calm Affect: Normal Speech Pattern: Clear, Appropriate - Laboratory and Diagnostics Result Diagrams: 02/22/23 05:40 02/22/23 05:40 Labs: 02/20/23 21:40 Urine,Clean Catch Urine Culture - Final Laboratory WBC 5.4 X10^3/uL (3.6-10.0) 02/22/23 05:40 RBC 4.24 X10^6/uL (3.5-5.4) 02/22/23 05:40 Hgb 12.7 g/dL (12.0-16.0) 02/22/23 05:40 Hct 37.0 % (36.0-47.0) 02/22/23 05:40 MCV 87.2 fL (80.0-100.0) 02/22/23 05:40 MCH 29.9 pg (27.0-34.0) 02/22/23 05:40 MCHC 34.3 g/dL (33.0-35.0) 02/22/23 05:40 RDW 14.0 % (11.6-16.5) 02/22/23 05:40 Plt Count 358 X10^3/uL (150.0-450.0) 02/22/23 05:40 MPV 7.5 fL (7.4-11.0) 02/22/23 05:40 Neut % (Auto) 77.9 % (42.0-75.0) H 02/22/23 05:40 Lymph % (Auto) 14.4 % (21.0-51.0) L 02/22/23 05:40 [place] % (Auto) 7.2 % (0.0-13.0) 02/22/23 05:40 Eos % (Auto) 0.0 % (0.9-2.9) L 02/22/23 05:40 Baso % (Auto) 0.5 % (0.2-1.0) 02/22/23 05:40 Neut # (Auto) 4.2 x10^3/uL (2.2-4.8) 02/22/23 05:40 Lymph # (Auto) 0.8 X10^3/uL (1.3-2.9) L 02/22/23 05:40 [place] # (Auto) 0.4 x10^3/uL (0.3-0.8) 02/22/23 05:40 Eos # (Auto) 0.0 x10^3/uL (0.0-0.2) 02/22/23 05:40 Baso # (Auto) 0.0 X10^3/uL (0.0-0.1) 02/22/23 05:40 Absolute Nucleated RBC 0.0 /100WBC 02/22/23 05:40 Sodium 140 mmol/L (136-145) 02/22/23 05:40 Corrected Sodium TNP 02/22/23 05:40 Potassium 3.6 mmol/L (3.5-5.1) 02/22/23 05:40 Chloride 103 mmol/L (98-107) 02/22/23 05:40 Carbon Dioxide 31.3 mmol/L (21-32) 02/22/23 05:40 BUN 6 mg/dL (7-18) L 02/22/23 05:40 Creatinine 0.70 mg/dL (0.55-1.02) 02/22/23 05:40 Est GFR (MDRD) Af Amer > 60 (>60) 02/22/23 05:40 Est GFR (MDRD) Non-Af > 60 (>60) 02/22/23 05:40 Glucose 100 mg/dL (65-99) H 02/22/23 05:40 Calcium 7.9 mg/dL (8.5-10.1) L 02/22/23 05:40 Corrected Calcium 9.0 mg/dL (8.5-10.1) 02/22/23 05:40 Magnesium 2.1 mg/dL (2.0-2.9) 02/21/23 05:42 Total Bilirubin 0.40 mg/dL (0.2-1.0) 02/22/23 05:40 AST 31 Units/L (15-37) 02/22/23 05:40 ALT 19 Units/L (12-78) 02/22/23 05:40 Alkaline Phosphatase 87 Units/L (46-116) 02/22/23 05:40 Total Protein 6.0 g/dL (6.4-8.2) L 02/22/23 05:40 Albumin 2.6 g/dL (3.4-5.0) L 02/22/23 05:40 Globulin 3.4 g/dL (2.5-4.5) 02/22/23 05:40 Albumin/Globulin Ratio 0.8 Ratio (1.1-2.1) L 02/22/23 05:40 Amylase 43 Units/L (25-115) 02/20/23 16:35 Lipase 112 Units/L (73-393) 02/20/23 16:35 Specimen Type Clean catch urine 02/20/23 21:40 Urine Color Yellow (YELLOW) 02/20/23 21:40 Urine Appearance Clear (CLEAR) 02/20/23 21:40 Urine pH 7.0 (5.0 - 8.0) 02/20/23 21:40 Ur Specific [place] 1.010 (1.000-1.030) 02/20/23 21:40 Urine Protein Negative (NEGATIVE) 02/20/23 21:40 Urine Glucose (UA) Negative (NEGATIVE) 02/20/23 21:40 Urine Ketones Negative (NEGATIVE) 02/20/23 21:40 Urine Blood Negative (NEGATIVE) 02/20/23 21:40 Urine Nitrite Negative (NEGATIVE) 02/20/23 21:40 Urine Bilirubin Negative (NEGATIVE) 02/20/23 21:40 Urine Urobilinogen Normal (NORMAL) 02/20/23 21:40 Ur Leukocyte Esterase Negative (NEGATIVE) 02/20/23 21:40 - Plan (1) Abdominal pain Status: Acute Qualifiers: Abdominal location: generalized Qualified Code(s): R10.84 - Generalized abdominal pain Plan: CONSULT GI, NORMAL SALINE AT 125 ML/HR, PEPCID 20MG IV Q12H, PROTONIX 40MG IV BID, DICYCLOMINE 20MG QID, ZOFRAN 4MG IV Q4H PRN, PHENERGAN 25MG IM Q6H PRN. RESUME HOME MEDS (2) Intractable nausea and vomiting Status: Acute Plan: IV ZOFRAN PRN (3) Generalized weakness Status: Acute (4) Cough Status: Acute Qualifiers: Cough type: acute Qualified Code(s): R05.1 - Acute cough Plan: OBTAIN CHEST XRAY AND RESPIRATORY PANEL (5) Anxiety Status: Chronic Plan: CONTINUE ATIVAN PRN (6) GERD (gastroesophageal reflux disease) Status: Chronic Qualifiers: Esophagitis presence: esophagitis presence not specified Qualified Code(s): K21.9 - Gastro-esophageal reflux disease without esophagitis Plan: CONTINUE PEPCID AND PROTONIX (7) Hypertension Status: Chronic Qualifiers: Hypertension type: primary hypertension Qualified Code(s): I10 - Essential (primary) hypertension Plan: CONTINUE TOPROL XL (8) Restless leg syndrome Status: Chronic Plan: CONTINUE REQUIP
[2023-02-22] MEDS ORDERED: NS 1,000 ML IV 1,000 ML ONE (12:32)
[2023-02-22] MEDS ORDERED: DIPRIVAN VIAL 20 ML ONE ×2 (12:40→13:00)
[2023-02-22] MEDS: REGLAN INJ 10 MG VIAL IVP SCH ×2 (15:42→21:00)
[2023-02-22] MEDS: PAXLOVID CO-PACK (EUA) PO SCH ×2 (15:42→21:39)
[2023-02-22] MEDS ORDERED: NovoLIN R (or HumuLIN R) SUBCUT PRN (19:24)
[2023-02-22 19:53] VITALS: RESP 20
[2023-02-22] MEDS ORDERED: SNACK - Diabetic Appropriate PO SCH (20:00)
[2023-02-22] MEDS: SINGULAIR TAB 10 MG PO SCH (21:01)
[2023-02-22] MEDS: K-DUR TAB 20 MEQ PO SCH (21:01)
[2023-02-22 23:36] VITALS: O2SAT 96
[2023-02-23] MEDS: NS 1,000 ML IV 1,000 ML IV SCH ×3 (00:34→10:29)
[2023-02-23] MEDS: REQUIP PO SCH (05:28)
[2023-02-23] MEDS: REGLAN INJ 10 MG VIAL IVP SCH (05:30)
[2023-02-23 06:15] LABS: BASOPHILS % (AUTO) 0.6 % (0.2-1.0); EOSINOPHILS % (AUTO) 0.2 % (0.9-2.9); HEMATOCRIT 34.4 % (36.0-47.0); HEMOGLOBIN 11.6 g/dL (12.0-16.0); LYMPHOCYTES # (AUTO) 1.9 X10^3/uL (1.3-2.9); LYMPHOCYTES % (AUTO) 35.6 % (21.0-51.0); MEAN CORPUSCULAR HEMOGLOBIN 29.8 pg (27.0-34.0); MEAN CORPUSCULAR HGB CONC 33.7 g/dL (33.0-35.0); MEAN CORPUSCULAR VOLUME 88.3 fL (80.0-100.0); MEAN PLATELET VOLUME 7.6 fL (7.4-11.0); MONOCYTES # (AUTO) 0.8 x10^3/uL (0.3-0.8); MONOCYTES % (AUTO) 14.6 % (0.0-13.0); NEUTROPHILS # (AUTO) 2.6 x10^3/uL (2.2-4.8); PLATELET COUNT 313 X10^3/uL (150.0-450.0); RED CELL DISTRIBUTION WIDTH 14.4 % (11.6-16.5); WHITE BLOOD COUNT 5.3 X10^3/uL (3.6-10.0)
[2023-02-23 06:45] LABS: ALANINE AMINOTRANSFERASE 17 Units/L (12-78); ALBUMIN 2.5 g/dL (3.4-5.0); ALKALINE PHOSPHATASE 81 Units/L (46-116); ASPARTATE AMINO TRANSFERASE 35 Units/L (15-37); BLOOD UREA NITROGEN 4 mg/dL (7-18); CALCIUM 7.3 mg/dL (8.5-10.1); CARBON DIOXIDE 28.5 mmol/L (21-32); CHLORIDE 104 mmol/L (98-107); COR CA(FOR HYPOALB) 8.5 mg/dL (8.5-10.1); CREATININE 0.64 mg/dL (0.55-1.02); GLUCOSE 86 mg/dL (65-99); MAGNESIUM 1.9 mg/dL (2.0-2.9); POTASSIUM 3.5 mmol/L (3.5-5.1); SODIUM 138 mmol/L (136-145); eGFR NON BLACK RACES > 60 (>60)
[2023-02-23] MEDS ORDERED: GLUCOPHAGE ONE (07:52)
[2023-02-23] MEDS ORDERED: K-DUR TAB 20 MEQ PO SCH (08:00)
[2023-02-23] MEDS ORDERED: CONSULT PHARMACY - POTASSIUM & MAGNESIUM XX SCH (08:00)
[2023-02-23] MEDS: LAMICTAL TAB 100 MG PO SCH (08:13)
[2023-02-23] MEDS: PROTONIX INJ 40 MG VIAL IVP SCH (08:13)
[2023-02-23] MEDS: TOPROL XL PO SCH (08:13)
[2023-02-23] MEDS: BENTYL CAP 10 MG PO SCH (08:13)
[2023-02-23] MEDS: GLUCOPHAGE PO SCH (08:14)
[2023-02-23] MEDS: PEPCID 20 MG VIAL 20 MG in NS 50 ML IV 50 ML IV SCH (08:14)
[2023-02-23] MEDS: DESVENLAFAXINE 100 MG PO SCH (08:15)
[2023-02-23] MEDS: PAXLOVID CO-PACK (EUA) PO SCH (08:16)
[2023-02-23] MEDS ORDERED: ROBITUSSIN DM PO PRN (08:23)
--- NOTE | 2023-02-23 08:28 | RAD ---
HISTORYCOUGH, WEAKNESS, NAUSEASTUDYCHEST, 1 [id number]/2020.TECHNIQUEPA or AP view of the chestFINDINGSThe cardiac and mediastinal contours are within normal limits. The lungs are clear without focal consolidation or segmental collapse. No pleural effusion or pneumothorax.IMPRESSIONNo acute pulmonary process.Electronically signed by: Jarrell Bravo (Feb 23, 2023 08:27:03)
[2023-02-23] MEDS ORDERED: MAG-OX TAB PO SCH (09:00)
[2023-02-23] MEDS ORDERED: NS 1,000 ML IV 1,000 ML IV ONE (09:51)
[2023-02-23 12:17] VITALS: BP 117/75; PULSE 116; TEMP 98.6
== END 2023-02-23 12:20 | disposition home or self-care (01) ==
LOC: MED/SURG
PROVIDERS: ADMIT Internal Medicine; ATTEND Internal Medicine

== ENCOUNTER 2024-12-13 10:39 | Observation (INO) ==
--- NOTE | 2024-12-13 11:30 | DR.GENAD ---
HPI Time Seen Time Seen by Provider: 12/13/24 11:20 PCP Primary Care Physician: ko HPI Comment HPI Comment: According to pt she has experienced body aches fatigue and chills associated with abdominal pain for at least 3-4 days gradual in onset. Pt did had labs done recently for breast surgery. her potassium was low. She is concerned she may be dehydrated. Here to have it checked Complaint/Symptoms Chief Complaint Doctors Comments: not feeling well Chief Complaint:: Patient states sunday she went for her pre-op labs in [place] she states she got them back and her potassium was 3.0 her sodium was 140 she states she has been feeling weak x3 days along with diarrhea but she states she keeps diarrhea her metformin gives her diarrhea, denies any vomiting lastnight she had lower abd cramping but when she had a bowel movement it went away. Self Treatment fo Chief Complaint: Patient drinking a IV bodyarmour drink COVID-19 Coronavirus risk:travel/contact w/high risk person: No Has patient experienced Coronavirus symptoms: No Nurses notes reviewed Nurses Notes Review: Yes Source History Provided: Patient Mode of Arrival Mode of Arrival: Ambulatory Timing Onset of Chief Complaint: 12/10/24 Came on: Gradually Duration Duration: Since Onset Severity Severity: Moderate PMH PMH Past Medical History: Yes Past Medical History: Depression, Diabetes and Hypertension Past Medical History Comment: restless leg Past Surgical History: Yes Surgical History: Appendectomy, , Cholecystectomy and Hysterectomy Family History History of Family Medical Conditions: Yes Family Medical History: Diabetes Mellitus, Cancer, [place], Coronary Artery Disease and Hypertension Social History Does patient currently use any type of tobacco product: No Have you used tobacco products in the last 12 months: No Type of Tobacco Use: None Does any household member use tobacco: No Alcohol Use: None Do you use any recreational Drugs:: No Lives With: Family Lives Where: Home Travel Risk Coronavirus risk:travel/contact w/high risk person: No Has patient experienced Coronavirus symptoms: No Infectious screening In the last 2 months have you had wt loss of >10#?: NO Have you had fever, night sweats or hemotysis?: No Have you traveled outside the country in the last 6 months?: No Isolation: Standard ROS Review of Systems Constitutional: Chills, Malaise and Fatigue Eyes: No Symptoms Reported ENTM: No Symptoms Reported Respiratoy: Non-Productive Cough Cardiovascular: No Symptoms Reported Gastrointestinal/Abdominal: Abdominal Pain and Diarrhea Genitourinary: No Symptoms Reported Neurological: No Symptoms Reported Musculoskeletal: No Symptoms Reported Integumentary: No Symptoms Reported Hematologic/Lymphatic: No Symptoms Reported Endocrine: No Symptoms Reported Psychiatric: No Symptoms Reported PE Vital Signs Vitals: Vital Signs Temperature 98.0 F Pulse Rate 120 Pulse Rate 112 Pulse Rate 109 Pulse Rate 108 Pulse Rate 125 Pulse Rate 110 Pulse Rate 107 Pulse Rate 106 Pulse Rate 105 Pulse Rate 107 Pulse Rate 105 Pulse Rate 104 Pulse Rate 106 Pulse Rate 105 Pulse Rate 104 Pulse Rate 110 Respiratory Rate 24 Respiratory Rate 21 Respiratory Rate 28 Respiratory Rate 24 Respiratory Rate 22 Respiratory Rate 20 Respiratory Rate 22 Respiratory Rate 21 Respiratory Rate 19 Respiratory Rate 20 Respiratory Rate 24 Respiratory Rate 20 Respiratory Rate 14 Respiratory Rate 20 Respiratory Rate 26 Respiratory Rate 16 Blood Pressure 132/81 Blood Pressure 138/75 Blood Pressure 136/89 Blood Pressure 130/86 Blood Pressure 115/78 Blood Pressure 123/79 Blood Pressure 131/77 Blood Pressure 130/91 O2 Sat by Pulse Oximetry 100 O2 Sat by Pulse Oximetry 98 O2 Sat by Pulse Oximetry 96 O2 Sat by Pulse Oximetry 95 O2 Sat by Pulse Oximetry 99 O2 Sat by Pulse Oximetry 96 O2 Sat by Pulse Oximetry 98 O2 Sat by Pulse Oximetry 97 O2 Sat by Pulse Oximetry 97 O2 Sat by Pulse Oximetry 99 O2 Sat by Pulse Oximetry 98 O2 Sat by Pulse Oximetry 98 O2 Sat by Pulse Oximetry 98 O2 Sat by Pulse Oximetry 99 O2 Sat by Pulse Oximetry 99 O2 Sat by Pulse Oximetry 95 General Limitations: No Limitations General Appearance: Alert, In No Apparent Distress and Anxious Head Head Exam: Normal Inspection, Atraumatic and Normocephalic Eyes Eye exam: Normal Appearance, PERRL and EOMI ENT ENT Exam: Normal Exam and Normal Oropharynx Neck Neck Exam: Normal Inspection Respiratory Respiratory Exam: Normal Lung Sounds Bilat Respiratory Exam: Bilateral: Clear to Auscultation Cardiovascular Cardiovascular Exam: +S1 and +S2 Abdominal Exam Abdominal Exam: Normal Inspection, Normal Bowel Sounds and Tenderness Extremities Extremities Exam: Normal Inspection Back Back Exam: Normal Inspection Skin Skin Exam: Normal Color MDM Differential Diagnosis Differential Diagnosis: viral syndrome , pancreatitis ,hypokalemia COURSE Treatment Treatment: labs ,swab, ROR Labs Reviewed Laboratory Results Reviewed?: Yes 12/13/24 11:17 12/13/24 14:22 Laboratory: WBC 7.0 X10^3/uL (3.6-10.0) 12/13/24 11:17 RBC 4.36 X10^6/uL (3.5-5.4) 12/13/24 11:17 Hgb 12.7 g/dL (12.0-16.0) 12/13/24 11:17 Hct 37.3 % (36.0-47.0) 12/13/24 11:17 MCV 85.4 fL (80.0-100.0) 12/13/24 11:17 MCH 29.2 pg (27.0-34.0) 12/13/24 11:17 MCHC 34.1 g/dL (33.0-35.0) 12/13/24 11:17 RDW 14.6 % (11.6-16.5) 12/13/24 11:17 Plt Count 268 X10^3/uL (150.0-450.0) 12/13/24 11:17 MPV 8.2 fL (7.4-11.0) 12/13/24 11:17 Neut % (Auto) 69.0 % (42.0-75.0) 12/13/24 11:17 Lymph % (Auto) 21.0 % (21.0-51.0) 12/13/24 11:17 [place] % (Auto) 9.5 % (0.0-13.0) 12/13/24 11:17 Eos % (Auto) 0.3 % (0.9-2.9) L 12/13/24 11:17 Baso % (Auto) 0.2 % (0.2-1.0) 12/13/24 11:17 Neut # (Auto) 4.9 x10^3/uL (2.2-4.8) H 12/13/24 11:17 Lymph # (Auto) 1.5 X10^3/uL (1.3-2.9) 12/13/24 11:17 [place] # (Auto) 0.7 x10^3/uL (0.3-0.8) 12/13/24 11:17 Eos # (Auto) 0.0 x10^3/uL (0.0-0.2) 12/13/24 11:17 Baso # (Auto) 0.0 X10^3/uL (0.0-0.1) 12/13/24 11:17 Absolute Nucleated RBC 0.1 /100WBC 12/13/24 11:17 Sodium 141 mmol/L (136-145) 12/13/24 11:17 Corrected Sodium 142 mmol/L (136-145) 12/13/24 11:17 Potassium 2.4 mmol/L (3.5-5.1) L* 12/13/24 14:22 Chloride 100 mmol/L (98-107) 12/13/24 11:17 Carbon Dioxide 33.2 mmol/L (21-32) H 12/13/24 11:17 BUN 4 mg/dL (7-18) L 12/13/24 11:17 Creatinine 0.62 mg/dL (0.55-1.02) 12/13/24 11:17 Est GFR (MDRD) Af Amer > 60 (>60) 12/13/24 11:17 Est GFR (MDRD) Non-Af > 60 (>60) 12/13/24 11:17 Glucose 127 mg/dL (65-99) H 12/13/24 11:17 Lactic Acid 1.4 mmol/L (0.4-2.0) 12/13/24 12:27 Calcium 8.1 mg/dL (8.5-10.1) L 12/13/24 11:17 Corrected Calcium 8.9 mg/dL (8.5-10.1) 12/13/24 11:17 Magnesium 1.7 mg/dL (2.0-2.9) L 12/13/24 14:22 Total Bilirubin 0.50 mg/dL (0.2-1.0) 12/13/24 11:17 AST 30 Units/L (15-37) 12/13/24 11:17 ALT 38 Units/L (12-78) 12/13/24 11:17 Alkaline Phosphatase 74 Units/L (46-116) 12/13/24 11:17 Total Protein 7.0 g/dL (6.4-8.2) 12/13/24 11:17 Albumin 3.0 g/dL (3.4-5.0) L 12/13/24 11:17 Globulin 4.0 g/dL (2.5-4.5) 12/13/24 11:17 Albumin/Globulin Ratio 0.8 Ratio (1.1-2.1) L 12/13/24 11:17 Lipase 21 Units/L (16-77) 12/13/24 11:17 SARS-CoV-2 (PCR) Negative (NEGATIVE) 12/13/24 11:21 Influenza Type A (PCR) Negative (NEGATIVE) 12/13/24 11:21 Influenza Type B (PCR) Negative (NEGATIVE) 12/13/24 11:21 RSV (PCR) Negative (NEGATIVE) 12/13/24 11:21 Opioid Opioid Risk Tool Age (Diego box if 16-45): Yes History of Preadolescent Sexual Abuse: No Total: 1 Total Score Risk Category: Low Risk Copyright: Tariq NUNEZ predicting aberrant behaviors Discharge Plan Diagnosis Discharge Problem: Hypokalemia, HTN (hypertension), DM type 2 (diabetes mellitus, type 2) Discharge Plan Patient Disposition: ADMITTED INPATIENT Condition: Stable Prescriptions: Continued ropinirole 1 mg tablet 1 mg PO TID Mounjaro 15 mg/0.5 mL pen injector 15 mg SUBCUT WEEKLY Patient Comments: [NO ORIGINAL SIG] metoprolol succinate 25 mg Tablet Extended Release 24 Hr 25 mg PO BID lamotrigine 100 mg Tablet 50 mg PO BID pantoprazole 40 mg Tablet,Delayed Release (Dr/Ec) 40 mg PO BID Qty: 60 3RF Rx Instructions: take one tablet twice a day Discontinued montelukast 10 mg Tablet 10 mg PO HS hydrochlorothiazide 25 mg Tablet 25 mg PO DAILY ondansetron 4 mg tablet,disintegrating 4 mg PO Q4H PRNQty: 30 1RF Rx Instructions: TAKE ONE TABLET EVERY 4 HOURS NEEDED FOR NAUSEA promethazine 25 mg Tablet 25 mg PO Q6H PRNQty: 20 1RF Rx Instructions: take one tablet every 6 hours as needed for nausea No Action metformin 1,000 mg tablet 1,000 mg PO BID Health Concerns: Post Hospitalization: new medications and changes needed to prevent readmission or further decline. Pt educated and given instructions on all concerns. Plan of Treatment: Continue with present treatment and follow up plan. Pt is to keep follow up appointment as instructed and take medications as ordered. Orders to Discharge Patient Discharge Orders: Transfer (Routine); Ordered 12/13/24 Ordered By: Henok Marin Follow ups/Referrals Follow ups/Referrals: Rigo Wise [Primary Care Provider, MEDICAL] - 3 days Instructions Stand Alone Forms: Find Help Web Site, Post Hospital Follow Up Care Print Language: [place] ADDITIONAL NOTES Additional Notes Additional Notes: potasium 2.7 ekg no peaked t waves .Start IV potassium, po potassium
[2024-12-13 11:47] LABS: BASOPHILS % (AUTO) 0.2 % (0.2-1.0); EOSINOPHILS % (AUTO) 0.3 % (0.9-2.9); HEMATOCRIT 37.3 % (36.0-47.0); HEMOGLOBIN 12.7 g/dL (12.0-16.0); LYMPHOCYTES # (AUTO) 1.5 X10^3/uL (1.3-2.9); MEAN CORPUSCULAR HEMOGLOBIN 29.2 pg (27.0-34.0); MEAN CORPUSCULAR HGB CONC 34.1 g/dL (33.0-35.0); MEAN CORPUSCULAR VOLUME 85.4 fL (80.0-100.0); MEAN PLATELET VOLUME 8.2 fL (7.4-11.0); MONOCYTES # (AUTO) 0.7 x10^3/uL (0.3-0.8); MONOCYTES % (AUTO) 9.5 % (0.0-13.0); NEUTROPHILS # (AUTO) 4.9 x10^3/uL (2.2-4.8); PLATELET COUNT 268 X10^3/uL (150.0-450.0); RED BLOOD COUNT 4.36 X10^6/uL (3.5-5.4); RED CELL DISTRIBUTION WIDTH 14.6 % (11.6-16.5)
[2024-12-13 12:03] LABS: ALANINE AMINOTRANSFERASE 38 Units/L (12-78); ALKALINE PHOSPHATASE 74 Units/L (46-116); ASPARTATE AMINO TRANSFERASE 30 Units/L (15-37); BLOOD UREA NITROGEN 4 mg/dL (7-18); CALCIUM 8.1 mg/dL (8.5-10.1); CARBON DIOXIDE 33.2 mmol/L (21-32); CHLORIDE 100 mmol/L (98-107); COR CA(FOR HYPOALB) 8.9 mg/dL (8.5-10.1); COR NA(FOR HYPERGLY) 142 mmol/L (136-145); CREATININE 0.62 mg/dL (0.55-1.02); GLUCOSE 127 mg/dL (65-99); LIPASE 21 Units/L (16-77); SODIUM 141 mmol/L (136-145); eGFR NON BLACK RACES > 60 (>60)
[2024-12-13 12:08] LABS: POTASSIUM 2.7 mmol/L (3.5-5.1)
--- NOTE | 2024-12-13 12:25 | EKG ---
Test Reason : low potassium Blood Pressure : */* mmHG Vent. Rate : 102 BPM Atrial Rate : 102 BPM P-R Int : 152 ms QRS Dur : 84 ms QT Int : 374 ms P-R-T Axes : 36 8 32 degrees QTc Int : 487 ms Sinus tachycardia Cannot rule out Anterior infarct , age undetermined Abnormal ECG No previous ECGs available Confirmed by Phil Paulino MD ([id number]) on 12/13/2024 8:05:41 PM Referred By: Confirmed By: Phil Paulino MD
[2024-12-13] MEDS: NS 1,000 ML IV 1,000 ML IV SCH (12:53)
[2024-12-13] MEDS: K-RIDER 10 MEQ/100 ML WATER 10 MEQ/100 ML BAG IV ONE (12:54)
[2024-12-13] MEDS: K-DUR TAB 20 MEQ PO ONE ×2 (12:54→15:01)
[2024-12-13] MEDS: NS + KCL 40 MEQ/L 1,000 ML IV ONE (15:03)
[2024-12-13] MEDS: MAGNESIUM SULFATE 50% INJ VIAL 2 G in NS 100 ML IV 100 ML IV STA (15:30)
[2024-12-13] MEDS ORDERED: TIRZEPATIDE 15 MG/0.5 ML SUBCUT SCH (15:50)
[2024-12-13] MEDS: MAGNESIUM SULFATE 1 GRAM/100 mL PREMIX 1 G/100 ML BAG IV SCH (16:07)
[2024-12-13 16:41] VITALS: BMI 36.4
[2024-12-13] MEDS ORDERED: NovoLIN R (or HumuLIN R) SUBCUT PRN (16:58)
[2024-12-13] MEDS: GLUCOPHAGE PO SCH (17:01)
[2024-12-13] MEDS: GLUCOPHAGE ONE (17:07)
[2024-12-13] MEDS: NS 1,000 ML IV 1,000 ML ONE (17:07)
[2024-12-13] MEDS: REQUIP PO SCH (21:05)
[2024-12-13] MEDS: LAMICTAL TAB 100 MG PO SCH (21:05)
[2024-12-13] MEDS: TOPROL XL PO SCH (21:05)
[2024-12-13] MEDS: REGLAN TAB 10 MG PO SCH (21:09)
[2024-12-13] MEDS: PROTONIX TAB 40 MG PO SCH (21:09)
[2024-12-13] MEDS: AMBIEN PO PRN (21:20)
[2024-12-13] MEDS: SNACK - Diabetic Appropriate PO SCH (21:53)
[2024-12-14] MEDS ORDERED: GLUCOPHAGE ONE (04:47)
[2024-12-14 05:58] LABS: BASOPHILS % (AUTO) 0.5 % (0.2-1.0); EOSINOPHILS % (AUTO) 0.7 % (0.9-2.9); HEMATOCRIT 35.4 % (36.0-47.0); HEMOGLOBIN 12.3 g/dL (12.0-16.0); LYMPHOCYTES # (AUTO) 1.6 X10^3/uL (1.3-2.9); MEAN CORPUSCULAR HEMOGLOBIN 29.8 pg (27.0-34.0); MEAN CORPUSCULAR HGB CONC 34.6 g/dL (33.0-35.0); MEAN CORPUSCULAR VOLUME 86.1 fL (80.0-100.0); MEAN PLATELET VOLUME 8.6 fL (7.4-11.0); MONOCYTES # (AUTO) 0.6 x10^3/uL (0.3-0.8); MONOCYTES % (AUTO) 12.2 % (0.0-13.0); NEUTROPHILS # (AUTO) 2.8 x10^3/uL (2.2-4.8); NEUTROPHILS % (AUTO) 54.6 % (42.0-75.0); PLATELET COUNT 245 X10^3/uL (150.0-450.0); RED BLOOD COUNT 4.11 X10^6/uL (3.5-5.4); RED CELL DISTRIBUTION WIDTH 15.2 % (11.6-16.5)
[2024-12-14 06:17] LABS: ALANINE AMINOTRANSFERASE 32 Units/L (12-78); ALBUMIN 2.6 g/dL (3.4-5.0); ALKALINE PHOSPHATASE 74 Units/L (46-116); ASPARTATE AMINO TRANSFERASE 23 Units/L (15-37); BLOOD UREA NITROGEN 5 mg/dL (7-18); CALCIUM 8.2 mg/dL (8.5-10.1); CARBON DIOXIDE 29.6 mmol/L (21-32); CHLORIDE 105 mmol/L (98-107); COR CA(FOR HYPOALB) 9.3 mg/dL (8.5-10.1); COR NA(FOR HYPERGLY) 145 mmol/L (136-145); CREATININE 0.59 mg/dL (0.55-1.02); GLUCOSE 165 mg/dL (65-99); MAGNESIUM 1.8 mg/dL (2.0-2.9); POTASSIUM 3.5 mmol/L (3.5-5.1); SODIUM 143 mmol/L (136-145); TOTAL PROTEIN 6.2 g/dL (6.4-8.2); eGFR NON BLACK RACES > 60 (>60)
[2024-12-14] MEDS ORDERED: CONSULT PHARMACY - POTASSIUM & MAGNESIUM XX SCH (07:00)
[2024-12-14 07:29] VITALS: RESP 16; O2SAT 96
[2024-12-14] MEDS: K-DUR TAB 20 MEQ PO SCH (08:42)
[2024-12-14] MEDS: MAG-OX TAB PO SCH (08:42)
[2024-12-14] MEDS ORDERED: DESVENLAFAXINE 100 MG PO SCH (09:00)
[2024-12-14] MEDS: CYMBALTA PO SCH (09:32)
[2024-12-14 11:48] VITALS: BP 130/88; PULSE 107; TEMP 97.9
--- NOTE | 2024-12-14 16:34 | DR.SSS ---
SHORT STAY SUMMARY Admission Date Date of Admission: 12/13/24 Discharge Date Discharge Date: 12/14/24 Admission Diagnoses Admission Diagnoses: Hypokalemia Discharge Diagnoses Discharge Diagnoses: Acute hypokalemia Chief Complaint Chief Complaint: Fatigue History of Present Illness History of Present Illness: patient with abnormal preop labs recently. Potassium was 3.9. Has been having 3 days of diarrhea, fatigue, and malaise. Came into the ER due to worsening symptoms. Found to have severely low potassium that has responded well to IV and p.o. replacement. She relates the diarrhea secondary to metformin use. Also some concern given her HCTZ use. ROS: 12 point ROS negative except as noted in HPI. PE: Well-developed, well-nourished, obese female in no acute distress. Sit on the edge of her bed. Head NCAT, EOMI, hearing intact conversation. Heart regular rate and rhythm, lungs clear bilaterally, bowel sounds present. No fasciculations or tics noted. Extremity range of motion looks good and equal to BUE. Mood and affect are appropriate. Past Medical History Past Medical History: Depression, Diabetes and Hypertension Additional Medical History: Hiatal Hernia, Restless Leg Syndrome, Past Surgical History Surgical History: Appendectomy, , Cholecystectomy and Hysterectomy Additional Surgical History: Bladder Tact, Lap Band, Tummy Tuck, Breast Reduction Allergies Allergies Allergy/AdvReac Type Severity Reaction Status Date / Time codeine Allergy Verified 12/13/24 10:58 levofloxacin (From Levaquin) Allergy Verified 12/13/24 10:58 Penicillins Allergy Verified 12/13/24 10:58 Medications Home Medications: codeine Allergy (Verified 12/13/24 10:58) levofloxacin (From Levaquin) Allergy (Verified 12/13/24 10:58) Penicillins Allergy (Verified 12/13/24 10:58) CONTINUE taking the following medications duloxetine 60 mg capsule,delayed release 60 mg PO QDAY 12/13/24 [History] metformin 1,000 mg tablet 1,000 mg PO BID 12/13/24 [History] thyroid (pork) 60 mg tablet (TRUST CLERK Thyroid) 60 mg PO QDAY 12/13/24 [History] tizanidine 4 mg tablet 4 mg PO QPM 12/13/24 [History] zolpidem 5 mg tablet (Ambien) 5 mg PO QHS PRN 12/13/24 [History] Family History Family Medical History: Diabetes Mellitus, Cancer, [place] and Hypertension Social History Does patient currently use any type of tobacco product: No Have you used tobacco products in the last 12 months: No Type of Tobacco Use: None Does any household member use tobacco: No Alcohol Use: None Drug Use: None Physical Exam Vital Signs: Last Vital Signs Temp 97.9 F 12/14/24 11:48 Pulse 107 H 12/14/24 11:48 Resp 16 12/14/24 11:48 BP 130/88 12/14/24 11:48 Pulse Ox 96 12/14/24 11:48 O2 Del Method Room Air 12/14/24 11:48 FiO2 28 06/17/20 09:45 Labs Labs: Laboratory Last Values WBC 5.0 X10^3/uL (3.6-10.0) 12/14/24 05:06 RBC 4.11 X10^6/uL (3.5-5.4) 12/14/24 05:06 Hgb 12.3 g/dL (12.0-16.0) 12/14/24 05:06 Hct 35.4 % (36.0-47.0) L 12/14/24 05:06 MCV 86.1 fL (80.0-100.0) 12/14/24 05:06 MCH 29.8 pg (27.0-34.0) 12/14/24 05:06 MCHC 34.6 g/dL (33.0-35.0) 12/14/24 05:06 RDW 15.2 % (11.6-16.5) 12/14/24 05:06 Plt Count 245 X10^3/uL (150.0-450.0) 12/14/24 05:06 MPV 8.6 fL (7.4-11.0) 12/14/24 05:06 Neut % (Auto) 54.6 % (42.0-75.0) 12/14/24 05:06 Lymph % (Auto) 32.0 % (21.0-51.0) 12/14/24 05:06 [place] % (Auto) 12.2 % (0.0-13.0) 12/14/24 05:06 Eos % (Auto) 0.7 % (0.9-2.9) L 12/14/24 05:06 Baso % (Auto) 0.5 % (0.2-1.0) 12/14/24 05:06 Neut # (Auto) 2.8 x10^3/uL (2.2-4.8) 12/14/24 05:06 Lymph # (Auto) 1.6 X10^3/uL (1.3-2.9) 12/14/24 05:06 [place] # (Auto) 0.6 x10^3/uL (0.3-0.8) 12/14/24 05:06 Eos # (Auto) 0.0 x10^3/uL (0.0-0.2) 12/14/24 05:06 Baso # (Auto) 0.0 X10^3/uL (0.0-0.1) 12/14/24 05:06 Absolute Nucleated RBC 0.1 /100WBC 12/14/24 05:06 Sodium 143 mmol/L (136-145) 12/14/24 05:06 Corrected Sodium 145 mmol/L (136-145) 12/14/24 05:06 Potassium 3.5 mmol/L (3.5-5.1) 12/14/24 05:06 Chloride 105 mmol/L (98-107) 12/14/24 05:06 Carbon Dioxide 29.6 mmol/L (21-32) 12/14/24 05:06 BUN 5 mg/dL (7-18) L 12/14/24 05:06 Creatinine 0.59 mg/dL (0.55-1.02) 12/14/24 05:06 Est GFR (MDRD) Af Amer > 60 (>60) 12/14/24 05:06 Est GFR (MDRD) Non-Af > 60 (>60) 12/14/24 05:06 Glucose 165 mg/dL (65-99) H 12/14/24 05:06 POC Glucose (mg/dL) 99 mg/dL (65-99) 12/14/24 11:06 Lactic Acid 1.4 mmol/L (0.4-2.0) 12/13/24 12:27 Calcium 8.2 mg/dL (8.5-10.1) L 12/14/24 05:06 Corrected Calcium 9.3 mg/dL (8.5-10.1) 12/14/24 05:06 Magnesium 1.8 mg/dL (2.0-2.9) L 12/14/24 05:06 Total Bilirubin 0.30 mg/dL (0.2-1.0) 12/14/24 05:06 AST 23 Units/L (15-37) 12/14/24 05:06 ALT 32 Units/L (12-78) 12/14/24 05:06 Alkaline Phosphatase 74 Units/L (46-116) 12/14/24 05:06 Total Protein 6.2 g/dL (6.4-8.2) L 12/14/24 05:06 Albumin 2.6 g/dL (3.4-5.0) L 12/14/24 05:06 Globulin 3.6 g/dL (2.5-4.5) 12/14/24 05:06 Albumin/Globulin Ratio 0.7 Ratio (1.1-2.1) L 12/14/24 05:06 Lipase 21 Units/L (16-77) 12/13/24 11:17 SARS-CoV-2 (PCR) Negative (NEGATIVE) 12/13/24 11:21 Influenza Type A (PCR) Negative (NEGATIVE) 12/13/24 11:21 Influenza Type B (PCR) Negative (NEGATIVE) 12/13/24 11:21 RSV (PCR) Negative (NEGATIVE) 12/13/24 11:21 Assessment/Plan (1) DM type 2 (diabetes mellitus, type 2): (2) HTN (hypertension): (3) Hypokalemia: Hospital Course Hospital Course: Patient was admitted overnight with potassium replacement. Repeat labs this [facility] were normal at 3.5. Patient feeling much better today. Discharged with instructions to back off metformin and hold HCTZ. Follow-up with PCP for discussion about further management. Did advise on high potassium-containing foods. Discharged home in improved, stable condition. Discharge Medications Discharge Medications: Home Medication List duloxetine 60 mg capsule,delayed release 60 mg PO QDAY 12/13/24 [History] metformin 1,000 mg tablet 1,000 mg PO BID 12/13/24 [History] thyroid (pork) 60 mg tablet (TRUST CLERK Thyroid) 60 mg PO QDAY 12/13/24 [History] tizanidine 4 mg tablet 4 mg PO QPM 12/13/24 [History] zolpidem 5 mg tablet (Ambien) 5 mg PO QHS PRN 12/13/24 [History] Prescriptions: Discharge Plan Discharge Plan Patient Disposition: 01 HOME, SELF-CARE Condition: Stable Health Concerns: Post Hospitalization: new medications and changes needed to prevent readmission or further decline. Pt educated and given instructions on all concerns. Plan of Treatment: Continue with present treatment and follow up plan. Pt is to keep follow up appointment as instructed and take medications as ordered. Prescription drug monitoring program results: PDMP was not reviewed Prescriptions: Continued metformin 1,000 mg tablet 1,000 mg PO BID tizanidine 4 mg tablet 4 mg PO QPM zolpidem [Ambien] 5 mg Tablet 5 mg PO QHS PRN duloxetine 60 mg capsule,delayed release(DR/EC) 60 mg PO QDAY thyroid (pork) [TRUST CLERK Thyroid] 60 mg tablet 60 mg PO QDAY ropinirole 1 mg tablet 1 mg PO DAILY Mounjaro 15 mg/0.5 mL pen injector 15 mg SUBCUT WEEKLY Patient Comments: [NO ORIGINAL SIG] metoprolol succinate 25 mg Tablet Extended Release 24 Hr 25 mg PO BID lamotrigine 100 mg Tablet 50 mg PO BID Discontinued montelukast 10 mg Tablet 10 mg PO HS hydrochlorothiazide 25 mg Tablet 25 mg PO DAILY ondansetron 4 mg tablet,disintegrating 4 mg PO Q4H PRNQty: 30 1RF Rx Instructions: TAKE ONE TABLET EVERY 4 HOURS NEEDED FOR NAUSEA Orders to Discharge Patient Discharge Orders: Discharge (Routine); Ordered 12/14/24 Ordered By: Jaya Gan Follow ups/Referrals Follow ups/Referrals: Rigo Wise [Primary Care Provider, MEDICAL] - 3 days Instructions Stand Alone Forms: Excuse From Work or School, Find Help Web Site, Post Hospital Follow Up Care Print Language: SCOTTISH
== END 2024-12-14 15:25 | disposition home or self-care (01) ==
LOC: MED/SURG 10:42 → ER 10:42 → MED/SURG 15:34
PROVIDERS: ADMIT Family Medicine; ATTEND Internal Medicine
DX: E11.65 Type 2 diabetes mellitus with hyperglycemia; R19.7 Diarrhea, unspecified; T38.3X5A Adverse effect of insulin and oral hypoglycemic [antidiabetic] drugs, initial encounter; I10 Essential (primary) hypertension; R11.10 Vomiting, unspecified; E87.6 Hypokalemia